=== PATIENT | female | born 1990 | race Two or more races ===

== ENCOUNTER 2018-03-17 04:41 | Emergency (ER) | payer SELFPAY ==
[2018-03-17] MEDS ORDERED: OXYCODONE-ACETAMINOPHEN 5-325 MG TABLET PO ONE (05:08)
[2018-03-17] MEDS ORDERED: ONDANSETRON 4 MG TAB.RAPDIS PO ONE (05:08)
--- NOTE | 2018-03-17 05:10 | ER Document Report ---
ED Medical Screen (RME) - General Chief Complaint: Back Pain Stated Complaint: BACK PAIN Time Seen by Provider: 03/17/18 05:03 Notes: 27-year-old female with chief complaint of sharp pain in the left pelvic area that radiates around to her left lower back. Symptoms started tonight. Denies vomiting, fever, vaginal bleeding, vaginal discharge, dysuria. TRAVEL OUTSIDE OF THE [place] IN LAST 30 DAYS: No - Related Data Allergies/Adverse Reactions: No Known Allergies Allergy (Verified 03/17/18 05:01) Physical Exam - Vital signs Vitals: Temp Pulse Resp BP Pulse Ox 98.3 F 93 17 101/74 93 03/17/18 04:47 03/17/18 04:47 03/17/18 04:47 03/17/18 04:47 03/17/18 04:47 - Abdominal Tenderness: Tender - Tender in the left lower quadrant/left pelvic area, remainder of abdomen is completely unremarkable Course - Re-evaluation Re-evalutation: Patient somewhat hirsute, has symptoms and physical examination suggestive of pain from ovarian cyst. Workup pending. I have greeted and performed a rapid initial assessment of this patient. A comprehensive ED assessment and evaluation of the patient, analysis of test results and completion of the medical decision making process will be conducted by additional ED providers. - Vital Signs Vital signs: Temp Pulse Resp BP Pulse Ox 98.3 F 93 17 101/74 93 03/17/18 04:47 03/17/18 04:47 03/17/18 04:47 03/17/18 04:47 03/17/18 04:47 Doctor's Discharge - Discharge Referrals: ARLINE ISLAS MD [Primary Care Provider] - Follow up as needed
[2018-03-17 05:29] LABS: ABSOLUTE BASOPHILS # (AUTO) 0.1 10^3/uL (0.0-0.2); ABSOLUTE EOSINOPHILS # (AUTO) 0.2 10^3/uL (0.0-0.6); ABSOLUTE LYMPHOCYTES (AUTO) 1.9 10^3/uL (0.5-4.7); ABSOLUTE MONOCYTES (AUTO) 0.5 10^3/uL (0.1-1.4); ABSOLUTE NEUT (AUTO) 5.4 10^3/uL (1.7-8.2); BASOPHILS % (AUTO) 0.8 % (0-2); EOSINOPHILS % (AUTO) 2.9 % (0-6); HEMATOCRIT 37.5 % (36.0-47.0); HEMOGLOBIN 12.5 g/dL (12.0-15.5); MEAN CORPUSCULAR HEMOGLOBIN 26.3 pg (27.0-33.4); MEAN CORPUSCULAR HGB CONC 33.4 g/dL (32.0-36.0); MEAN CORPUSCULAR VOLUME 79 fl (80-97); MONOCYTES % (AUTO) 6.4 % (3-13); PLATELET COUNT 367 10^3/uL (150-450); RED BLOOD COUNT 4.76 10^6/uL (3.72-5.28); RED CELL DISTRIBUTION WIDTH 14.3 % (11.5-14.0); SEGMENTED NEUTROPHILS % (AUTO) 66.9 % (42-78); TOTAL CELLS COUNTED % (AUTO) 100 %; WHITE BLOOD COUNT 8.1 10^3/uL (4.0-10.5)
[2018-03-17 05:45] LABS: APPEARANCE,URINE SLIGHTLY-CLOUDY; BILIRUBIN,URINE NEGATIVE (NEGATIVE); COLOR,URINE YELLOW; GLUCOSE, URINE NEGATIVE (NEGATIVE); KETONES,URINE NEGATIVE (NEGATIVE); LEUKOCYTE ESTERASE,URINE NEGATIVE (NEGATIVE); NITRITE,URINE NEGATIVE (NEGATIVE); PROTEIN,URINE NEGATIVE (NEGATIVE); URINE SPECIFIC GRAVITY 1.019; UROBILINOGEN,URINE NEGATIVE mg/dL (<2.0)
[2018-03-17 05:48] LABS: ANION GAP 9 (5-19); BLOOD UREA NITROGEN 11 mg/dL (7-20); CALCIUM 9.1 mg/dL (8.4-10.2); CARBON DIOXIDE 25 mmol/L (22-30); CHLORIDE 107 mmol/L (98-107); GLUCOSE 107 mg/dL (75-110); POTASSIUM 4.3 mmol/L (3.6-5.0); SODIUM 140.5 mmol/L (137-145)
--- NOTE | 2018-03-17 07:05 | RADIOLOGY REPORT (SQ) ---
CLINICAL DATA: 27-year-old female with sharp left pelvic pain. The patient's LMP was 02/24/2018. TECHNICAL DATA: Transabdominal and transvaginal imaging of the pelvis was performed on 03/17/2018 at 5:49 AM. FINDINGS: There are no comparisons. The uterus is normal in size, shape and echogenicity and measures 7.4 x 5.1 x 3.7 cm. The endometrial complex measures 1.0 cm in thickness. There is no endometrial fluid. The cervix measures 2.2 cm in length. The right ovary measures 3.2 x 2.4 x 2.3 cm. The right ovary demonstrates normal follicular changes. Doppler imaging demonstrates normal pulsed and color Doppler flow. The left ovary measures 2.8 x 1.9 x 2.7 cm. The left ovary demonstrates normal follicular changes. There is a dominant follicle arising from the left ovary with a maximum dimension of 1.7 cm. No follow-up imaging recommended. Doppler imaging demonstrates normal pulsed and color Doppler flow. There is a small amount of free fluid in the pelvis adjacent to the left ovary. IMPRESSION: 1. Small amount of free fluid in the left adnexal region adjacent to the left ovary. 2. Otherwise, unremarkable pelvic ultrasound.
--- NOTE | 2018-03-17 07:18 | ER Document Report ---
ED General - General Chief Complaint: Back Pain Stated Complaint: BACK PAIN Time Seen by Provider: 03/17/18 05:03 TRAVEL OUTSIDE OF THE [place] IN LAST 30 DAYS: No - HPI Patient complains to provider of: Back pain abdominal pain Notes: Patient coming in for evaluation of back pain and abdominal pain. Patient was seen by triage provider's notes provided below 27-year-old female with chief complaint of sharp pain in the left pelvic area that radiates around to her left lower back. Symptoms started tonight. Denies vomiting, fever, vaginal bleeding, vaginal discharge, dysuria. Patient agrees with the above statement. Patient has history of kidney stones denies any dysuria denies any fevers chills nausea vomiting diarrhea patient denies any trauma denies any recent antibiotics. Patient otherwise is resting comfortably upon my evaluation. Patient states the pain is now free is that she received a Percocet prior to my arrival. A brief review of the patient's past medical records available in [facility] was performed - Related Data Allergies/Adverse Reactions: No Known Allergies Allergy (Verified 03/17/18 05:01) Past Medical History - Social History Smoking Status: Never Smoker Chew tobacco use (# tins/day): No Frequency of alcohol use: None Drug Abuse: None Family History: Reviewed & Not Pertinent Patient has suicidal ideation: No Patient has homicidal ideation: No Renal/ Medical History: Denies: Hx Peritoneal Dialysis Review of Systems - Review of Systems Constitutional: No symptoms reported EENT: No symptoms reported Cardiovascular: No symptoms reported Respiratory: No symptoms reported Gastrointestinal: Abdominal pain - Back pain radiating to the abdomen Genitourinary: No symptoms reported Female Genitourinary: No symptoms reported Musculoskeletal: No symptoms reported Skin: No symptoms reported Hematologic/Lymphatic: No symptoms reported Neurological/Psychological: No symptoms reported -: Yes All other systems reviewed and negative Physical Exam - Vital signs Vitals: Temp Pulse Resp BP Pulse Ox 98.3 F 93 17 101/74 93 03/17/18 04:47 03/17/18 04:47 03/17/18 04:47 03/17/18 04:47 03/17/18 04:47 Interpretation: Normal - General General appearance: Appears well, Alert - HEENT Head: Normocephalic, Atraumatic Eyes: Normal Pupils: PERRL - Respiratory Respiratory status: No respiratory distress Chest status: Nontender Breath sounds: Normal Chest palpation: Normal - Cardiovascular Rhythm: Regular Heart sounds: Normal auscultation Murmur: No - Abdominal Inspection: Normal Distension: No distension Bowel sounds: Normal Tenderness: Nontender Organomegaly: No organomegaly - Back Back: Normal, Nontender - Extremities General upper extremity: Normal inspection, Nontender, Normal color, Normal ROM, Normal temperature General lower extremity: Normal inspection, Nontender, Normal color, Normal ROM, Normal temperature, Normal weight bearing. No: Joni's sign - Neurological Neuro grossly intact: Yes Cognition: Normal Orientation: AAOx4 Vu Coma Scale Eye Opening: Spontaneous [place] Coma Scale Verbal: Oriented [place] Coma Scale Motor: Obeys Commands Vu Coma Scale Total: 15 Speech: Normal Motor strength normal: LUE, RUE, LLE, RLE Sensory: Normal - Psychological Associated symptoms: Normal affect, Normal mood - Skin Skin Temperature: Warm Skin Moisture: Dry Skin Color: Normal Course - Re-evaluation Re-evalutation: 03/17/18 08:01 The patient presents with abdominal pain without signs of peritonitis or other life-threatening or serious etiology. The patient appears stable for discharge and has been instructed to return immediately if the symptoms worsen in any way, or in 8-12hr if not improved for re-evaluation. The patient has been instructed to return if the symptoms worsen or change in any way. Left ovary does have some free fluid around it which may be consistent with a ruptured cyst. She otherwise remained pain-free during her stay here patient was recommended to continue with Tylenol Motrin for pain control prescription for Ultram was given to the patient for the next 72 hours. Patient states understanding of the use of this medication was discharged home. - Vital Signs Vital signs: Temp Pulse Resp BP Pulse Ox 98.2 F 72 16 115/63 98 03/17/18 07:23 03/17/18 07:23 03/17/18 07:23 03/17/18 07:23 03/17/18 07:23 - Laboratory Result Diagrams: 03/17/18 05:18 03/17/18 05:18 Laboratory results interpreted by me: 03/17/18 03/17/18 05:18 05:18 MCV 79 L MCH 26.3 L RDW 14.3 H Urine Blood LARGE H Discharge - Discharge Clinical Impression: left lower abdominal pain Condition: Good Instructions: Ice Packs ([facility]), Low Back Pain ([facility]), Oral Narcotic Medication ([facility]), Ovarian Cyst ([facility]), Warm Packs ([facility]) Additional Instructions: Your evaluation today is consistent with a ruptured ovarian cyst. I would highly recommend she follow-up with your primary care physician take Tylenol and Motrin as prescribed for your pain take the Ultram as prescribed for severe pain Prescriptions: Ibuprofen [Motrin 600 mg Tablet] 600 mg PO Q8HP PRN #21 tablet PRN Reason: Tramadol HCl [Ultram 50 mg Tablet] 50 mg PO ASDIR PRN #11 tablet PRN Reason: Forms: Return to Work Referrals: ARLINE ISLAS MD [ACTIVE STAFF] - Follow up as needed
[2018-03-17 07:29] VITALS: BP 115/63
== END 2018-03-17 07:24 | disposition home or self-care (01) ==
LOC: ER 04:41
DX: R10.2 Pelvic and perineal pain (principal); R18.8 Other ascites; M54.5 Low back pain; Z87.442 Personal history of urinary calculi
CPT/HCPCS: 99284; 36415; 85025; 81025; 80048; 81001; 76830; 93976; S0119

== ENCOUNTER 2018-05-26 08:36 | Emergency (ER) | payer SELFPAY ==
[2018-05-26 10:24] LABS: ABSOLUTE EOSINOPHILS # (AUTO) 0.1 10^3/uL (0.0-0.6); ABSOLUTE LYMPHOCYTES (AUTO) 1.8 10^3/uL (0.5-4.7); ABSOLUTE MONOCYTES (AUTO) 0.6 10^3/uL (0.1-1.4); ABSOLUTE NEUT (AUTO) 9.3 10^3/uL (1.7-8.2); BASOPHILS % (AUTO) 0.4 % (0-2); EOSINOPHILS % (AUTO) 0.8 % (0-6); HEMATOCRIT 36.2 % (36.0-47.0); HEMOGLOBIN 12.3 g/dL (12.0-15.5); LYMPHOCYTES % (AUTO) 15.3 % (13-45); MEAN CORPUSCULAR HEMOGLOBIN 26.6 pg (27.0-33.4); MEAN CORPUSCULAR VOLUME 78 fl (80-97); MONOCYTES % (AUTO) 4.8 % (3-13); PLATELET COUNT 355 10^3/uL (150-450); RED BLOOD COUNT 4.62 10^6/uL (3.72-5.28); RED CELL DISTRIBUTION WIDTH 14.6 % (11.5-14.0); SEGMENTED NEUTROPHILS % (AUTO) 78.7 % (42-78); TOTAL CELLS COUNTED % (AUTO) 100 %; WHITE BLOOD COUNT 11.8 10^3/uL (4.0-10.5)
[2018-05-26] MEDS ORDERED: ACETAMINOPHEN 325 MG TABLET PO ONE (10:30)
--- NOTE | 2018-05-26 10:32 | ER Document Report ---
ED General - General Chief Complaint: Lower Abdominal Pain Stated Complaint: ABDOMINAL PAIN Time Seen by Provider: 05/26/18 10:24 Primary Care Provider: [facility] [Provider Group] - Follow up in 3-5 days TRAVEL OUTSIDE OF THE [place] IN LAST 30 DAYS: No - HPI Notes: Patient is a 27-year-old female that presents to the emergency department for chief complaint of left adnexal pain. She states the pain is sharp and constant since 7 AM this morning with intermittent radiation into her back. She denies aggravating or relieving factors. Patient is at about 8 weeks gestation with an estimated due date of January 04 based on dates. She has had confirmed at the health department but has not had an ultrasound yet. She denies any vaginal bleeding or discharge. She denies any associated urinary complaints. The only medication she is currently taking is vitamins Past Medical History: Ovarian cysts Past Surgical History: Negative Social History: Denies drugs alcohol and tobacco Family History: Reviewed and noncontributory for presenting illness Allergies: Reviewed, see documented allergy list. REVIEW OF SYSTEMS: CONSTITUTIONAL : No fever No chills No diaphoresis No recent illness EENT: No vision changes No congestion No sore throat CARDIOVASCULAR: No chest pain No palpitations RESPIRATORY: No shortness of breath No cough No difficulty breathing GASTROINTESTINAL: abdominal pain No nausea No vomiting No diarrhea GENITOURINARY: No dysuria No hematuria No difficulty urinating MUSCULOSKELETAL: No back pain No leg pain No arm pain SKIN: No rashes No lesions LYMPHATIC: No swollen, enlarged glands. NEUROLOGICAL: No lightheadedness No headache No weakness No paresthesias PSYCHIATRIC: No anxiety No depression PHYSICAL EXAMINATION: Vital signs reviewed, nursing noted reviewed. GENERAL: Well-appearing, well-nourished and in no acute distress. HEAD: Atraumatic, normocephalic. EYES: Eyes appear normal, extraocular movements intact, sclera anicteric, conjunctiva are normal. ENT: nares patent, oropharynx clear without exudates. Moist mucous membranes. NECK: Normal range of motion, supple without lymphadenopathy LUNGS: Breath sounds clear to auscultation bilaterally and equal. No wheezes rales or rhonchi. HEART: Regular rate and rhythm without murmurs ABDOMEN: Soft, mild left lower quadrant tenderness, normoactive bowel sounds. No rebound, guarding, or rigidity. No masses appreciated. EXTREMITIES: Nontender, good range of motion, no pitting or edema. NEUROLOGICAL: No focal neurological deficits. Moves all extremities spontaneously Motor and sensory grossly intact on exam. PSYCH: Normal mood, normal affect. SKIN: Warm, Dry, normal turgor, no rashes or lesions noted on exposed skin - Related Data Allergies/Adverse Reactions: No Known Allergies Allergy (Verified 05/26/18 08:37) Past Medical History - Social History Smoking Status: Unknown if Ever Smoked Family History: Reviewed & Not Pertinent Patient has suicidal ideation: No Patient has homicidal ideation: No Renal/ Medical History: Denies: Hx Peritoneal Dialysis Physical Exam - Vital signs Vitals: Temp Pulse Resp BP Pulse Ox 98.1 F 82 16 142/80 H 99 05/26/18 08:40 05/26/18 08:40 05/26/18 08:40 05/26/18 08:40 05/26/18 08:40 Course - Re-evaluation Re-evalutation: 05/26/18 12:40 Vitals reviewed. Nursing notes reviewed. Patient given Tylenol for pain. Ultrasound shows single live intrauterine gestation with no ectopic . Her lab work is unremarkable. Her pain was improved with medication. She has remained hemodynamically stable. Patient's presenting blood pressure was elevated however repeat is normal. I suspect this was falsely elevated, I did counselor camp her on close blood pressure recheck at [facility]. She was referred to OB for further management. She was counseled on return precautions and verbalized understanding. Patient's UTI treated with Macrobid. Laboratory 05/26/18 05/26/18 05/26/18 10:04 10:04 10:04 WBC 11.8 H RBC 4.62 Hgb 12.3 Hct 36.2 MCV 78 L MCH 26.6 L MCHC 34.0 RDW 14.6 H Plt Count 355 Seg Neutrophils % 78.7 H Lymphocytes % 15.3 Monocytes % 4.8 Eosinophils % 0.8 Basophils % 0.4 Absolute Neutrophils 9.3 H Absolute Lymphocytes 1.8 Absolute Monocytes 0.6 Absolute Eosinophils 0.1 Absolute Basophils 0.0 Sodium 136.3 L Potassium 4.2 Chloride 106 Carbon Dioxide 20 L Anion Gap 10 BUN 10 Creatinine 0.66 Est GFR ( Amer) > 60 Est GFR (Non-Af Amer) > 60 Glucose 94 Calcium 9.7 Total Bilirubin 0.4 Direct Bilirubin 0.3 Neonat Total Bilirubin Not Reportable Neonat Direct Bilirubin Not Reportable Neonat Indirect Bili Not Reportable AST 19 ALT 18 Alkaline Phosphatase 78 Total Protein 7.4 Albumin 3.9 Lipase 69.3 Beta HCG, Quant Total Beta HCG Urine Color YELLOW Urine Appearance CLEAR Urine pH 7.0 Ur Specific Rosine 1.014 Urine Protein NEGATIVE Urine Glucose (UA) NEGATIVE Urine Ketones NEGATIVE Urine Blood NEGATIVE Urine Nitrite NEGATIVE Urine Bilirubin NEGATIVE Urine Urobilinogen NEGATIVE Ur Leukocyte Esterase MODERATE H Urine WBC (Auto) 13 Urine RBC (Auto) 1 Squamous Epi Cells Auto 3 Urine Mucus (Auto) RARE Urine Ascorbic Acid NEGATIVE Urine HCG, Qual POSITIVE H Blood Type Rhogam Indicated 05/26/18 05/26/18 10:04 10:47 WBC RBC Hgb Hct MCV MCH MCHC RDW Plt Count Seg Neutrophils % Lymphocytes % Monocytes % Eosinophils % Basophils % Absolute Neutrophils Absolute Lymphocytes Absolute Monocytes Absolute Eosinophils Absolute Basophils Sodium Potassium Chloride Carbon Dioxide Anion Gap BUN Creatinine Est GFR ( Amer) Est GFR (Non-Af Amer) Glucose Calcium Total Bilirubin Direct Bilirubin Neonat Total Bilirubin Neonat Direct Bilirubin Neonat Indirect Bili AST ALT Alkaline Phosphatase Total Protein Albumin Lipase Beta HCG, Quant 21521.00 H Total Beta HCG POSITIVE Urine Color Urine Appearance Urine pH Ur Specific Rosine Urine Protein Urine Glucose (UA) Urine Ketones Urine Blood Urine Nitrite Urine Bilirubin Urine Urobilinogen Ur Leukocyte Esterase Urine WBC (Auto) Urine RBC (Auto) Squamous Epi Cells Auto Urine Mucus (Auto) Urine Ascorbic Acid Urine HCG, Qual Blood Type O POSITIVE Rhogam Indicated RHOGAM NOT INDICATED Obstetrics Ultrasound 05/26/18 10:24 IMPRESSION: LIVING INTRAUTERINE . EGA 6 weeks 6 days. Trimester of : First - 0 to 13 weeks. 05/26/18 12:54 - Vital Signs Vital signs: Temp Pulse Resp BP Pulse Ox 98.2 F 66 16 110/59 L 100 05/26/18 12:51 05/26/18 12:51 05/26/18 12:51 05/26/18 12:51 05/26/18 12:51 - Laboratory Result Diagrams: 05/26/18 10:04 05/26/18 10:04 Laboratory results interpreted by me: 05/26/18 05/26/18 05/26/18 10:04 10:04 10:04 WBC 11.8 H MCV 78 L MCH 26.6 L RDW 14.6 H Seg Neutrophils % 78.7 H Absolute Neutrophils 9.3 H Sodium 136.3 L Carbon Dioxide 20 L Beta HCG, Quant Ur Leukocyte Esterase MODERATE H Urine HCG, Qual POSITIVE H 05/26/18 10:04 WBC MCV MCH RDW Seg Neutrophils % Absolute Neutrophils Sodium Carbon Dioxide Beta HCG, Quant 92976.00 H Ur Leukocyte Esterase Urine HCG, Qual Discharge - Discharge Clinical Impression: Acute UTI, Abdominal pain affecting Condition: Stable Disposition: HOME, SELF-CARE Instructions: Nitrofurantoin ([facility]), Pelvic Pain in ([facility]), Urinary Tract Infection ([facility]) Additional Instructions: Please return to the emergency department if you have any worsening, or concern of your symptoms. Please return to the emergency department if you develop chest pain, difficulty breathing, severe abdominal pain, or ongoing vomiting. Please follow-up with your primary care physician in 2-3 days and any other recommended physicians. If prescribed, take all medications as directed. If you have any questions or concerns do not hesitate to return the emergency department for evaluation. [] Prescriptions: Nitrofurantoin Macrocrystal [Macrodantin] 100 mg PO Q6 5 Days capsule Referrals: [facility] [Provider Group] - Follow up in 3-5 days
[2018-05-26 10:40] LABS: APPEARANCE,URINE CLEAR; BILIRUBIN,URINE NEGATIVE (NEGATIVE); COLOR,URINE YELLOW; GLUCOSE, URINE NEGATIVE (NEGATIVE); KETONES,URINE NEGATIVE (NEGATIVE); LEUKOCYTE ESTERASE,URINE MODERATE (NEGATIVE); NITRITE,URINE NEGATIVE (NEGATIVE); PROTEIN,URINE NEGATIVE (NEGATIVE); URINE SPECIFIC GRAVITY 1.014; UROBILINOGEN,URINE NEGATIVE mg/dL (<2.0)
[2018-05-26 10:49] LABS: ALANINE AMINOTRANSFERASE 18 U/L (9-52); ALBUMIN 3.9 g/dL (3.5-5.0); ALKALINE PHOSPHATASE 78 U/L (38-126); ANION GAP 10 (5-19); ASPARTATE AMINO TRANSFERASE 19 U/L (14-36); BILIRUBIN,DIRECT 0.3 mg/dL (0.0-0.4); BILIRUBIN,TOTAL 0.4 mg/dL (0.2-1.3); BLOOD UREA NITROGEN 10 mg/dL (7-20); CALCIUM 9.7 mg/dL (8.4-10.2); CARBON DIOXIDE 20 mmol/L (22-30); CHLORIDE 106 mmol/L (98-107); GLUCOSE 94 mg/dL (75-110); LIPASE 69.3 U/L (23-300); POTASSIUM 4.2 mmol/L (3.6-5.0); SODIUM 136.3 mmol/L (137-145); TOTAL PROTEIN 7.4 g/dL (6.3-8.2)
[2018-05-26] MEDS ORDERED: NORMAL SALINE 1000 ML 1,000 ML IV ONE (12:20)
--- NOTE | 2018-05-26 12:39 | RADIOLOGY REPORT (SQ) ---
EXAM DESCRIPTION: U/S OB TRANSVAGINAL W/O DOP COMPLETED DATE/TIME: 05/26/2018 12:32 pm REASON FOR STUDY: left adnexal pain COMPARISON: None. TECHNIQUE: Transvaginal static and realtime grayscale images acquired of the pelvis. Additional kusum cted spectral and color Doppler images recorded. All images stored on PACs. [id number] CLINICAL DATES: 8 weeks 1 day LIMITATIONS: None. FINDINGS: FETUS: Single Living intrauterine . ULTRASOUND EGA: 6 weeks 6 days ULTRASOUND MARLO: 01/13/2019 EFW: Not applicable less than 20 weeks. CRL: 9 mm FHR: 131 beats per minute. SURVEY: No visualized anomalies. AMNIOTIC FLUID: Adequate amount. PLACENTA: Not yet developed due to early gestation. SUBCHORIONIC BLEED: No. SIZE OF BLEED: Not applicable. UTERUS: No masses. No anomalies. CERVICAL LENGTH: 2.2 cm. Closed. RIGHT ADNEXA: Normal ovary with normal vascular flow. No adnexal free fluid. Simple cyst(s) measuring 3.3 cm. LEFT ADNEXA: Normal ovary with normal vascular flow. No adnexal free fluid. No adnexal masses. FREE FLUID: None. OTHER: No other significant finding. IMPRESSION: LIVING INTRAUTERINE . EGA 6 weeks 6 days. Trimester of : First - 0 to 13 weeks. TECHNICAL DOCUMENTATION: JOB ID: [id number] [employer]- All Rights Reserved Reading location - IP/workstation name: [email or web address]
[2018-05-26 12:52] VITALS: BP 110/59
== END 2018-05-26 13:06 | disposition home or self-care (01) ==
LOC: ER 08:36
DX: O23.40 Unspecified infection of urinary tract in pregnancy, unspecified trimester (principal); O26.899 Other specified pregnancy related conditions, unspecified trimester; R10.2 Pelvic and perineal pain; R10.814 Left lower quadrant abdominal tenderness; Z3A.00 Weeks of gestation of pregnancy not specified; Z87.42 Personal history of other diseases of the female genital tract; Z79.899 Other long term (current) drug therapy
CPT/HCPCS: 36415; 76817; 80053; 81001; 81025; 83690; 84702; 85025; 86900; 86901; 99284

== ENCOUNTER 2018-07-15 22:25 | Emergency (ER) | payer MEDICAID ==
[2018-07-15] MEDS ORDERED: ACETAMINOPHEN 325 MG TABLET PO ONE (22:42)
[2018-07-16 00:16] LABS: APPEARANCE,URINE TURBID; BILIRUBIN,URINE NEGATIVE (NEGATIVE); CALCIUM OXALATE CRYSTALS,URINE MANY /HPF; COLOR,URINE YELLOW; GLUCOSE, URINE NEGATIVE (NEGATIVE); KETONES,URINE TRACE mg/dL (NEGATIVE); LEUKOCYTE ESTERASE,URINE SMALL (NEGATIVE); NITRITE,URINE NEGATIVE (NEGATIVE); PROTEIN,URINE NEGATIVE (NEGATIVE); URINE SPECIFIC GRAVITY 1.021; UROBILINOGEN,URINE NEGATIVE mg/dL (<2.0)
[2018-07-16] MEDS ORDERED: OXYCODONE-ACETAMINOPHEN 5-325 MG TABLET PO ONE (00:21)
[2018-07-16] MEDS ORDERED: ONDANSETRON 4 MG TAB.RAPDIS PO ONE (00:21)
--- NOTE | 2018-07-16 00:22 | ER Document Report ---
ED General - General Chief Complaint: OB Problem (<20wks) Stated Complaint: ABDOMINAL PAIN Time Seen by Provider: 07/15/18 23:42 Primary Care Provider: RASHMI NIX MD [Primary Care Provider] - Follow up as needed Mode of Arrival: Ambulatory Information source: Patient, [facility] Records Notes: 27-year-old female G1, P0 at 14 weeks gestation presents with complaint of left lower quadrant abdominal pain that started 1 day prior to arrival. Patient describes the pain as aching, stabbing and associated with nausea, vomiting and chills. Patient denies any vaginal bleeding. She has been following with OB and has had a prior ultrasound which showed an IUP. Patient also reports frequent urinary tract infections with her last infection 1 week ago which was treated with Macrobid. Patient has had a total of 3 urinary tract infection since this . TRAVEL OUTSIDE OF THE [place] IN LAST 30 DAYS: No - HPI Onset: Yesterday Onset/Duration: Gradual, Persistent Quality of pain: Achy, Throbbing Severity: Moderate Pain Level: 2 Associated symptoms: Nausea, Vomiting Exacerbated by: Denies Relieved by: Denies Similar symptoms previously: Yes Recently seen / treated by doctor: Yes - Related Data Allergies/Adverse Reactions: No Known Allergies Allergy (Verified 05/26/18 08:37) Past Medical History - General Information source: Patient - Social History Smoking Status: Never Smoker Chew tobacco use (# tins/day): No Frequency of alcohol use: None Drug Abuse: None Lives with: Family Family History: Reviewed & Not Pertinent Patient has suicidal ideation: No Patient has homicidal ideation: No - Medical History Medical History: Negative Renal/ Medical History: Denies: Hx Peritoneal Dialysis Review of Systems - Review of Systems Notes: REVIEW OF SYSTEMS: CONSTITUTIONAL : Denies fever, or sweats. Denies recent illness. Denies weight loss, recent hospitalizations. EENT: Denies visual changes, eye pain. Denies sore throat, oral lesions, difficulty swallowing. CARDIOVASCULAR: Denies chest pain. Denies palpitations. Denies lower extremity edema. RESPIRATORY: Denies cough. Denies shortness of breath, wheezing. GASTROINTESTINAL: Denies abdominal pain or distention. Denies diarrhea. Denies blood in vomitus, stools, or per rectum. Denies black, tarry stools. Denies constipation. GENITOURINARY: Denies difficulty urinating, painful urination, blood in urine, or vaginal discharge. MUSCULOSKELETAL: Denies back or neck pain or stiffness. Denies joint pain or swelling. SKIN: Denies rash, lesions or sores. HEMATOLOGIC : Denies easy bruising or bleeding. LYMPHATIC: Denies swollen glands. NEUROLOGICAL: Denies confusion or altered mental status. Denies loss of consciousness. Denies dizziness or lightheadedness. Denies headache. Denies weakness or paralysis. Denies problems difficulty with ambulation, slurred speech. Denies sensory loss, numbness, or tingling. Denies seizures. PSYCHIATRIC: Denies anxiety or stress. Denies depression, suicidal ideation, or homicidal ideation. Denies visual or auditory hallucinations. Physical Exam - Vital signs Vitals: Temp Pulse Resp BP Pulse Ox 98.1 F 85 20 110/86 H 98 07/15/18 22:32 07/15/18 22:32 07/15/18 22:32 07/15/18 22:32 07/15/18 22:32 - Notes Notes: PHYSICAL EXAMINATION: GENERAL: Well-appearing, well-nourished and in no acute distress. HEAD: Atraumatic, normocephalic. EYES: Pupils equal round and reactive to light, extraocular movements intact, conjunctiva are normal. ENT: Nares patent, oropharynx clear without exudates. Moist mucous membranes. NECK: Normal range of motion, supple without lymphadenopathy LUNGS: Breath sounds clear to auscultation bilaterally and equal. No wheezes rales or rhonchi. HEART: Regular rate and rhythm without murmurs ABDOMEN: Soft, suprapubic abdominal tenderness, nondistended abdomen. No guarding, no rebound. No masses appreciated. Female : deferred Musculoskeletal: Normal range of motion, no pitting or edema. No cyanosis. NEUROLOGICAL: Cranial nerves grossly intact. Normal speech, normal gait. Normal sensory, motor exams PSYCH: Normal mood, normal affect. SKIN: Warm, Dry, normal turgor, no rashes or lesions noted. Course - Re-evaluation Re-evalutation: 07/16/18 00:22 Bedside ultrasound was performed and shows an IUP with a heart rate of 158. 07/16/18 02:26 Laboratory 07/15/18 22:48 Urine Color YELLOW Urine Appearance TURBID Urine pH 7.0 Ur Specific [place] 1.021 Urine Protein NEGATIVE Urine Glucose (UA) NEGATIVE Urine Ketones TRACE H Urine Blood NEGATIVE Urine Nitrite NEGATIVE Urine Bilirubin NEGATIVE Urine Urobilinogen NEGATIVE Ur Leukocyte Esterase SMALL H Urine WBC (Auto) 11 Urine RBC (Auto) 3 Urine Bacteria (Auto) TRACE Squamous Epi Cells Auto 13 Calcium Oxalate Cr Auto MANY Urine Mucus (Auto) OCC Urine Ascorbic Acid NEGATIVE Temp Pulse Resp BP Pulse Ox 98.5 F 86 18 132/65 H 100 07/16/18 00:54 07/16/18 00:54 07/16/18 00:54 07/16/18 00:54 07/16/18 00:54 27-year-old female G1, P0 at 14 weeks gestation presents with left lower quadrant abdominal pain. Patient does have a history of recurrent urinary tract infection. Denies any vaginal bleeding. Reports recent discontinuation of an antibiotic. Previous medical records and nursing notes reviewed. Bedside ultrasound was performed and did show an IUP with a heart rate of 158. Urine culture pending. Patient was provided Tylenol for pain and advised to take Tylenol every 4 hours as needed. Patient was evaluated and treated as appropriate for the patient's presenting symptoms and complaint, with consideration of any critical or life threatening conditions that may be associated with their obtained history and exam as noted above. All results were discussed with patient and family members are at the bedside. patient provided the opportunity to ask questions, and express concerns. Patient was educated on treatments based on their presumed diagnosis as noted above. At this time we will discharge the patient with return precautions and follow-up recommendations. Verbal discharge instructions given a the bedside. Medication warnings reviewed. Patient is in agreement with this plan and has verbalized understanding of return precautions. After careful consideration I feel that that patient can be safely discharged from the emergency department, they were advised to followup with a primary care physician in 2-3 days. Dictation on this chart was performed using voice recognition software and may result in unintended grammatical, spelling, syntax or errors. - Vital Signs Vital signs: Temp Pulse Resp BP Pulse Ox 98.5 F 86 18 132/65 H 100 07/16/18 00:54 07/16/18 00:54 07/16/18 00:54 07/16/18 00:54 07/16/18 00:54 - Laboratory Laboratory results interpreted by me: 07/15/18 22:48 Urine Ketones TRACE H Ur Leukocyte Esterase SMALL H Discharge - Discharge Clinical Impression: Abdominal pain during in second trimester Condition: Good Disposition: HOME, SELF-CARE Instructions: Abdominal Pain ([facility]), Pelvic Pain in ([facility]), Pelvic Pain in and Round Ligament Pain ([facility]) Referrals: RASHMI NIX MD [Primary Care Provider] - Follow up as needed
[2018-07-16 00:54] VITALS: BP 132/65
== END 2018-07-16 00:55 | disposition home or self-care (01) ==
LOC: ER 22:25
DX: O26.92 Pregnancy related conditions, unspecified, second trimester (principal); R10.32 Left lower quadrant pain; Z3A.14 14 weeks gestation of pregnancy
CPT/HCPCS: 99284; 87086; 87088; 81001; 87186; J3490; S0119

== ENCOUNTER 2018-08-25 17:32 | Emergency (ER) | payer MEDICAID ==
--- NOTE | 2018-08-25 18:56 | ER Document Report ---
ED Medical Screen (RME) - General Chief Complaint: Vaginal Bleeding Stated Complaint: URINARY SYMPTOMS Time Seen by Provider: 08/25/18 18:52 Primary Care Provider: RASHMI NIX MD [Primary Care Provider] - Follow up as needed TRAVEL OUTSIDE OF THE [place] IN LAST 30 DAYS: No - HPI Notes: 08/25/18 18:55 Patient is a 28-year-old female G1, P0 at 19 weeks 6 days who presents complaining of having 2 episodes of spotting today with some burning with urination and pressure in that area. Patient states that she does have a yellow/cloudy vaginal discharge. She is having normal bowel movements. Denies drug allergies. No other concerns or complaints. Denies ESTEVEZ, fever, neck pain, URI, CP, SOB, back pain, or rash. I have treated and performed a rapid initial assessment of this patient. A comprehensive ED assessment and evaluation of the patient, analysis of test results and completion of medical decision making process will be conducted by additional ED providers. PHYSICAL EXAMINATION: GENERAL: Well-appearing, well-nourished and in no acute distress. A&Ox4. Answers questions appropriately. LUNGS: Breath sounds clear to auscultation bilaterally and equal. No wheezes rales or rhonchi. HEART: Regular rate and rhythm without murmurs, rubs, gallops. - Related Data Allergies/Adverse Reactions: No Known Allergies Allergy (Verified 07/17/18 09:09) Past Medical History Renal/ Medical History: Denies: Hx Peritoneal Dialysis Physical Exam - Vital signs Vitals: Temp Pulse Resp BP Pulse Ox 97.4 F 88 16 127/69 H 99 08/25/18 17:47 08/25/18 17:47 08/25/18 17:47 08/25/18 17:47 08/25/18 17:47 Course - Vital Signs Vital signs: Temp Pulse Resp BP Pulse Ox 97.4 F 88 16 127/69 H 99 08/25/18 17:47 08/25/18 17:47 08/25/18 17:47 08/25/18 17:47 08/25/18 17:47 Doctor's Discharge - Discharge Referrals: RASHMI NIX MD [Primary Care Provider] - Follow up as needed
[2018-08-25 19:48] LABS: APPEARANCE,URINE CLOUDY; BILIRUBIN,URINE NEGATIVE (NEGATIVE); COLOR,URINE YELLOW; GLUCOSE, URINE NEGATIVE (NEGATIVE); KETONES,URINE NEGATIVE (NEGATIVE); LEUKOCYTE ESTERASE,URINE SMALL (NEGATIVE); NITRITE,URINE NEGATIVE (NEGATIVE); PROTEIN,URINE 30 mg/dL (NEGATIVE); URINE SPECIFIC GRAVITY 1.016; UROBILINOGEN,URINE NEGATIVE mg/dL (<2.0)
--- NOTE | 2018-08-25 20:28 | RADIOLOGY REPORT (SQ) ---
EXAM DESCRIPTION: CLINICAL HISTORY: 28 years Female 19wks 6 days, spotting twice today COMPARISON: None. TECHNIQUE: Transabdominal duplex imaging performed to evaluate the pelvis. FINDINGS: Anterior placenta without abruption or previa. Cord insertion spine and stomach are noted. Normal ITZ. Cervix appears closed and measures 3.9 cm. Maternal ovaries are unremarkable with normal blood flow. Breech presentation. Estimated weight 424 g. Estimated age 21 weeks two days. Heart rate 127 bpm. IMPRESSION: Living IUP corresponding to 21 weeks two days
--- NOTE | 2018-08-25 20:33 | ER Document Report ---
ED GI/ - General Chief Complaint: Vaginal Bleeding Stated Complaint: URINARY SYMPTOMS Time Seen by Provider: 08/25/18 18:52 Primary Care Provider: RASHMI NIX MD [ACTIVE STAFF] - Follow up as needed Notes: Patient is a 28-year-old female, G1, P0 at reportedly 19 weeks 6 days by first trimester ultrasound, that comes to the emergency department for chief complaint of 2 episodes of very light vaginal spotting that she noticed with wiping, she is also had some dysuria, a small amount of vaginal discharge, and occasional cramps in the lower abdomen. She denies current pain. She denies fever/chills, injury, nausea/vomiting. She states she feels "flutters" that she thinks it was baby moving but she is not certain. TRAVEL OUTSIDE OF THE [place] IN LAST 30 DAYS: No - Related Data Allergies/Adverse Reactions: No Known Allergies Allergy (Verified 08/25/18 22:03) Past Medical History - General Last Menstrual Period: 03/30/18 - Social History Smoking Status: Never Smoker Frequency of alcohol use: None Drug Abuse: None Family History: Reviewed & Not Pertinent Patient has suicidal ideation: No Patient has homicidal ideation: No Renal/ Medical History: Denies: Hx Peritoneal Dialysis Review of Systems - Review of Systems Constitutional: No symptoms reported EENT: No symptoms reported Cardiovascular: No symptoms reported Respiratory: No symptoms reported Gastrointestinal: See HPI Genitourinary: See HPI Female Genitourinary: See HPI Musculoskeletal: No symptoms reported Skin: No symptoms reported Hematologic/Lymphatic: No symptoms reported Neurological/Psychological: No symptoms reported Physical Exam - Vital signs Vitals: Temp Pulse Resp BP Pulse Ox 97.4 F 88 16 127/69 H 99 08/25/18 17:47 08/25/18 17:47 08/25/18 17:47 08/25/18 17:47 08/25/18 17:47 - Notes Notes: GENERAL: Alert, interacts well. No acute distress. HEAD: Normocephalic, atraumatic. EYES: Pupils equal, round, and reactive to light. Extraocular movements intact. ENT: Oral mucosa moist, tongue midline. Oropharynx unremarkable. Airway patent. NECK: Full range of motion. Supple. Trachea midline. LUNGS: Clear to auscultation bilaterally, no wheezes, rales, or rhonchi. No respiratory distress. HEART: Regular rate and rhythm. No murmur ABDOMEN: Soft, non-tender. Bowel sounds present in all 4 quadrants. GENITOURINARY: Small amount of discharge noted, external exam unremarkable, no cervical motion tenderness, no bleeding, no concerning findings otherwise. Exam performed with Tatyana GONZALEZ at bedside. EXTREMITIES: Moves all 4 extremities spontaneously. No edema, normal radial and dorsalis pedis pulses bilaterally. No cyanosis. BACK: no cervical, thoracic, lumbar midline tenderness. No saddle anesthesia, normal distal neurovascular exam. Moves all extremities in full range of motion. NEUROLOGICAL: Alert and oriented x3. Normal speech. Cranial nerves II through XII grossly intact. PSYCH: Normal affect, normal mood. SKIN: Warm, dry, normal turgor. No rashes or lesions noted. Course - Re-evaluation Re-evalutation: Patient is well-appearing. Her abdomen is soft and benign. No concerning abnormality or cervical motion tenderness on pelvic exam. CBC shows mild leukocytosis. Urinalysis appears infected. There does not appear to be any vaginal bleeding going on my exam. Pelvic results nonspecific. Ultrasound showing live intrauterine at 21 weeks. No acute findings otherwise. RhoGam is not indicated. I discussed with patient. I discussed with Dr. De La O, [facility] SCIENTIST on-call. She does not recommend patient be checked in the labor and delivery because her work-up is completed at this time and she is currently asymptomatic. Recommendation is for patient to be treated for urinary tract infection, she is to follow-up with primary care/[facility] SCIENTIST and return if she worsens, return precautions were discussed in detail. Patient states satisfaction agreement. - Vital Signs Vital signs: Temp Pulse Resp BP Pulse Ox 98.0 F 83 18 130/67 H 99 08/25/18 21:54 08/25/18 21:54 08/25/18 21:54 08/25/18 21:54 08/25/18 21:54 - Laboratory Result Diagrams: 08/25/18 20:35 Laboratory results interpreted by me: 08/25/18 08/25/18 18:50 20:35 WBC 13.3 H Hgb 11.1 L Hct 33.6 L MCV 78 L MCH 25.7 L RDW 14.2 H Seg Neutrophils % 79.6 H Absolute Neutrophils 10.6 H Urine Protein 30 H Urine Blood LARGE H Ur Leukocyte Esterase SMALL H Discharge - Discharge Clinical Impression: Abdominal cramping affecting Condition: Stable Disposition: HOME, SELF-CARE Additional Instructions: There appears to be blood in the urine but no current vaginal bleeding is noted. The ultrasound shows a at 21 weeks without any noted concerning findings. We are treating for what is suspected to be a bladder infection, take Keflex antibiotics as prescribed. I spoke with Dr. Jairon walters. Follow-up with primary care. Return if you worsen including fever, vomiting, severe abdominal pain, vaginal bleeding, or any other concerning or worsening symptoms. Prescriptions: Cephalexin Monohydrate [Keflex 500 mg Capsule] 500 mg PO BID 7 Days #14 capsule Referrals: RASHMI NIX MD [ACTIVE STAFF] - Follow up as needed
[2018-08-25 20:51] LABS: ABSOLUTE BASOPHILS # (AUTO) 0.1 10^3/uL (0.0-0.2); ABSOLUTE EOSINOPHILS # (AUTO) 0.1 10^3/uL (0.0-0.6); ABSOLUTE LYMPHOCYTES (AUTO) 2.1 10^3/uL (0.5-4.7); ABSOLUTE MONOCYTES (AUTO) 0.4 10^3/uL (0.1-1.4); ABSOLUTE NEUT (AUTO) 10.6 10^3/uL (1.7-8.2); BASOPHILS % (AUTO) 0.7 % (0-2); EOSINOPHILS % (AUTO) 0.8 % (0-6); HEMATOCRIT 33.6 % (36.0-47.0); HEMOGLOBIN 11.1 g/dL (12.0-15.5); LYMPHOCYTES % (AUTO) 15.8 % (13-45); MEAN CORPUSCULAR HEMOGLOBIN 25.7 pg (27.0-33.4); MEAN CORPUSCULAR HGB CONC 33.1 g/dL (32.0-36.0); MEAN CORPUSCULAR VOLUME 78 fl (80-97); MONOCYTES % (AUTO) 3.1 % (3-13); PLATELET COUNT 349 10^3/uL (150-450); RED BLOOD COUNT 4.33 10^6/uL (3.72-5.28); RED CELL DISTRIBUTION WIDTH 14.2 % (11.5-14.0); SEGMENTED NEUTROPHILS % (AUTO) 79.6 % (42-78); TOTAL CELLS COUNTED % (AUTO) 100 %; WHITE BLOOD COUNT 13.3 10^3/uL (4.0-10.5)
[2018-08-25 21:25] LABS: RBCS (WET MOUNT) NO RBCS SEEN; T.VAGINALIS (WET MOUNT) NO TRICHOMONAS SEEN; WBCS (WET MOUNT) 2+ WBCS SEEN; YEAST (WET MOUNT) NO YEAST SEEN
[2018-08-25] MEDS ORDERED: CEPHALEXIN 500 MG CAPSULE PO ONE (21:44)
[2018-08-25 21:55] VITALS: BP 130/67
[2018-08-25 22:53] LABS: CHLAM PCR NOT DETECTED (NOT DETECT)
== END 2018-08-25 22:03 | disposition home or self-care (01) ==
LOC: ER 17:32
DX: O46.92 Antepartum hemorrhage, unspecified, second trimester (principal); O26.892 Other specified pregnancy related conditions, second trimester; R10.9 Unspecified abdominal pain; R30.0 Dysuria; Z3A.19 19 weeks gestation of pregnancy
CPT/HCPCS: 36415; 76805; 81001; 85025; 86900; 86901; 87086; 87210; 87491; 87591; 99284

== ENCOUNTER 2018-10-21 19:39 | Emergency (ER) | payer MEDICAID ==
--- NOTE | 2018-10-21 20:23 | ER Document Report ---
ED Medical Screen (RME) - General Chief Complaint: Flank Pain Stated Complaint: RIGHT SIDE PAIN Time Seen by Provider: 10/21/18 20:17 Primary Care Provider: CRISTAL BRAGA MD [Primary Care Provider] - Follow up as needed Notes: Patient is a 28-year-old female who presents to the emergency department today with a chief complaint of right lower back pain. Patient states that started this morning and is constant. Patient states this feels like a pressure. Patient states she just finished Macrobid last a week for a UTI. She states she was on this for 10 days. Patient reports increased urinary frequency, cloudy urine and discoloration. Patient reports vaginal pressure. Patient reports she is 28 weeks , denies contractions or vaginal bleeding. Patient reports she has felt the baby move. Patient denies flank pain. Patient denies fever. Patient states she was having sexual intercourse a few days ago and had burning at that time to the vagina. Patient reports vaginal discharge that is thick and white and itching. TRAVEL OUTSIDE OF THE [place] IN LAST 30 DAYS: No - Related Data Allergies/Adverse Reactions: No Known Allergies Allergy (Verified 08/25/18 22:03) Past Medical History Renal/ Medical History: Denies: Hx Peritoneal Dialysis Physical Exam - Vital signs Vitals: Temp Pulse Resp BP Pulse Ox 98.1 F 87 18 120/70 99 10/21/18 19:53 10/21/18 19:53 10/21/18 19:53 10/21/18 19:53 10/21/18 19:53 - Back Notes: No CVA tenderness Course - Re-evaluation Re-evalutation: 10/21/18 20:23 I have greeted and performed a rapid initial assessment of this patient. A comprehensive ED assessment and evaluation of the patient, analysis of test results and completion of the medical decision making process will be conducted by additional ED providers. - Vital Signs Vital signs: Temp Pulse Resp BP Pulse Ox 98.1 F 87 18 120/70 99 10/21/18 19:53 10/21/18 19:53 10/21/18 19:53 10/21/18 19:53 10/21/18 19:53 Doctor's Discharge - Discharge Referrals: CRISTAL BRAGA MD [Primary Care Provider] - Follow up as needed
[2018-10-21 20:46] LABS: AMORPHOUS SEDIMENT,URINE TRACE /HPF; APPEARANCE,URINE SLIGHTLY-CLOUDY; BILIRUBIN,URINE NEGATIVE (NEGATIVE); COLOR,URINE YELLOW; GLUCOSE, URINE NEGATIVE (NEGATIVE); KETONES,URINE NEGATIVE (NEGATIVE); LEUKOCYTE ESTERASE,URINE LARGE (NEGATIVE); NITRITE,URINE NEGATIVE (NEGATIVE); PROTEIN,URINE 30 mg/dL (NEGATIVE); URINE SPECIFIC GRAVITY 1.018; UROBILINOGEN,URINE NEGATIVE mg/dL (<2.0)
--- NOTE | 2018-10-21 20:58 | ER Document Report ---
ED General - General Chief Complaint: Flank Pain Stated Complaint: RIGHT SIDE PAIN Time Seen by Provider: 10/21/18 20:17 Primary Care Provider: CRISTAL BRAGA MD [Primary Care Provider] - Follow up as needed Information source: Patient TRAVEL OUTSIDE OF THE [place] IN LAST 30 DAYS: No - HPI Notes: Patient presents with right flank pain. Started this morning. She states she has had multiple urinary tract infections with this . She states this feels similar. She states is been eating normally. No nausea or vomiting. No trouble with stool. She does not have burning or stinging with urination. She states she has had no vaginal leakage or bleeding. She states she is 28 weeks and has had no problems with this other than the chronic UTIs. She states she still feeling the baby move. The pain in her back is been moderate and constant. Nothing makes better or worse. It is an aching sensation. - Related Data Allergies/Adverse Reactions: No Known Allergies Allergy (Verified 08/25/18 22:03) Past Medical History - General Information source: Patient - Social History Smoking Status: Never Smoker Frequency of alcohol use: None Drug Abuse: None Family History: Reviewed & Not Pertinent Patient has suicidal ideation: No Patient has homicidal ideation: No Renal/ Medical History: Denies: Hx Peritoneal Dialysis Review of Systems - Review of Systems Constitutional: denies: Chills, Fever Cardiovascular: denies: Chest pain, Syncope Respiratory: denies: Cough, Short of breath -: Yes All other systems reviewed and negative Physical Exam - Vital signs Vitals: Temp Pulse Resp BP Pulse Ox 98.1 F 87 18 120/70 99 10/21/18 19:53 10/21/18 19:53 10/21/18 19:53 10/21/18 19:53 10/21/18 19:53 Interpretation: Normal - General General appearance: Appears well, Alert - HEENT Head: Normocephalic, Atraumatic Eyes: Normal Pupils: PERRL - Respiratory Respiratory status: No respiratory distress Chest status: Nontender Breath sounds: Normal Chest palpation: Normal - Cardiovascular Rhythm: Regular Heart sounds: Normal auscultation Murmur: No - Abdominal Inspection: Gravid female Distension: No distension Bowel sounds: Normal Tenderness: Tender - Patient has some minimal right lower quadrant tenderness to palpation. Organomegaly: No organomegaly - Back Back: Normal, Tender, CVA tenderness - Right CVA tenderness to percussion - Extremities General upper extremity: Normal inspection, Nontender, Normal color, Normal ROM, Normal temperature General lower extremity: Normal inspection, Nontender, Normal color, Normal ROM, Normal temperature, Normal weight bearing. No: Joni's sign - Neurological Neuro grossly intact: Yes Cognition: Normal Orientation: AAOx4 [place] Coma Scale Eye Opening: Spontaneous Vu Coma Scale Verbal: Oriented [place] Coma Scale Motor: Obeys Commands [place] Coma Scale Total: 15 Speech: Normal Motor strength normal: LUE, RUE, LLE, RLE Sensory: Normal - Psychological Associated symptoms: Normal affect, Normal mood - Skin Skin Temperature: Warm Skin Moisture: Dry Skin Color: Normal Course - Re-evaluation Re-evalutation: 10/21/18 21:27 Patient reassessed at this time. Patient has ambulated to the bathroom without assistance. Her vitals are normal. She still has some mild right-sided abdo carol ann and flank pain. She has a mild increase of her white blood cell count. However she has no fever and does not appear toxic. Dr. Potter asked me to have the patient follow-up in the office in the morning. I believe this is reasonable. Patient is in agreement. 10/21/18 21:29 heart tones were 140 - Vital Signs Vital signs: Temp Pulse Resp BP Pulse Ox 98.1 F 87 18 120/70 99 10/21/18 19:53 10/21/18 19:53 10/21/18 19:53 10/21/18 19:53 10/21/18 19:53 - Laboratory Result Diagrams: 10/21/18 20:53 10/21/18 20:53 Laboratory results interpreted by me: 10/21/18 10/21/18 10/21/18 19:50 20:53 20:53 WBC 14.8 H Hgb 11.0 L Hct 33.2 L MCV 76 L MCH 25.0 L RDW 15.1 H Seg Neutrophils % 79.8 H Absolute Neutrophils 11.8 H Sodium 136.0 L Carbon Dioxide 19 L Urine Protein 30 H Ur Leukocyte Esterase LARGE H 10/21/18 21:29 Laboratory 10/21/18 10/21/18 10/21/18 19:50 20:53 20:53 WBC 14.8 H RBC 4.39 Hgb 11.0 L Hct 33.2 L MCV 76 L MCH 25.0 L MCHC 33.0 RDW 15.1 H Plt Count 334 Seg Neutrophils % 79.8 H Lymphocytes % 14.7 Monocytes % 4.0 Eosinophils % 0.7 Basophils % 0.8 Absolute Neutrophils 11.8 H Absolute Lymphocytes 2.2 Absolute Monocytes 0.6 Absolute Eosinophils 0.1 Absolute Basophils 0.1 Sodium 136.0 L Potassium 3.8 Chloride 105 Carbon Dioxide 19 L Anion Gap 12 BUN 9 Creatinine 0.84 Est GFR ( Amer) > 60 Est GFR (Non-Af Amer) > 60 Glucose 81 Calcium 9.1 Urine Color YELLOW Urine Appearance SLIGHTLY-CLOUDY Urine pH 6.0 Ur Specific [place] 1.018 Urine Protein 30 H Urine Glucose (UA) NEGATIVE Urine Ketones NEGATIVE Urine Blood NEGATIVE Urine Nitrite NEGATIVE Urine Bilirubin NEGATIVE Urine Urobilinogen NEGATIVE Ur Leukocyte Esterase LARGE H Urine WBC (Auto) 63 Urine RBC (Auto) 7 Urine Bacteria (Auto) TRACE Squamous Epi Cells Auto 6 U Non-Squamous Epis Auto 1 Amorphous Sediment Auto TRACE Urine Mucus (Auto) RARE Urine Ascorbic Acid NEGATIVE Discharge - Discharge Clinical Impression: Pyelonephritis affecting Qualifiers: Trimester: third trimester Qualified Code(s): O23.03 - Infections of kidney in , third trimester Condition: Stable Disposition: HOME, SELF-CARE Instructions: Pyelonephritis ([facility]) Prescriptions: Cefdinir 300 mg PO BID 7 Days #14 capsule Referrals: TREY POTTER MD [ACTIVE STAFF] - Follow up tomorrow
[2018-10-21] MEDS ORDERED: CEFTRIAXONE 1 GM/D5W RTU 1 GM/50 ML RTUPB IV ONE (21:01)
[2018-10-21 21:02] LABS: ABSOLUTE BASOPHILS # (AUTO) 0.1 10^3/uL (0.0-0.2); ABSOLUTE EOSINOPHILS # (AUTO) 0.1 10^3/uL (0.0-0.6); ABSOLUTE LYMPHOCYTES (AUTO) 2.2 10^3/uL (0.5-4.7); ABSOLUTE MONOCYTES (AUTO) 0.6 10^3/uL (0.1-1.4); ABSOLUTE NEUT (AUTO) 11.8 10^3/uL (1.7-8.2); BASOPHILS % (AUTO) 0.8 % (0-2); EOSINOPHILS % (AUTO) 0.7 % (0-6); HEMATOCRIT 33.2 % (36.0-47.0); LYMPHOCYTES % (AUTO) 14.7 % (13-45); MEAN CORPUSCULAR VOLUME 76 fl (80-97); PLATELET COUNT 334 10^3/uL (150-450); RED BLOOD COUNT 4.39 10^6/uL (3.72-5.28); RED CELL DISTRIBUTION WIDTH 15.1 % (11.5-14.0); SEGMENTED NEUTROPHILS % (AUTO) 79.8 % (42-78); TOTAL CELLS COUNTED % (AUTO) 100 %; WHITE BLOOD COUNT 14.8 10^3/uL (4.0-10.5)
[2018-10-21 21:18] LABS: ANION GAP 12 (5-19); BLOOD UREA NITROGEN 9 mg/dL (7-20); CALCIUM 9.1 mg/dL (8.4-10.2); CARBON DIOXIDE 19 mmol/L (22-30); CHLORIDE 105 mmol/L (98-107); GLUCOSE 81 mg/dL (75-110); POTASSIUM 3.8 mmol/L (3.6-5.0)
[2018-10-21] MEDS ORDERED: CEFTRIAXONE INJ 1000 MG VIAL ONE (21:18)
[2018-10-21 21:58] VITALS: BP 123/60
== END 2018-10-21 21:57 | disposition home or self-care (01) ==
LOC: ER 19:39
DX: O23.03 Infections of kidney in pregnancy, third trimester (principal); R10.9 Unspecified abdominal pain; Z3A.28 28 weeks gestation of pregnancy
CPT/HCPCS: 36415; 80048; 81001; 85025; 87086; 87088; J0696

== ENCOUNTER 2018-11-29 12:21 | Outpatient (CLI) | payer MEDICAID ==
[2018-11-29 13:20] LABS: APPEARANCE,URINE CLOUDY; BILIRUBIN,URINE NEGATIVE (NEGATIVE); COLOR,URINE YELLOW; GLUCOSE, URINE NEGATIVE (NEGATIVE); KETONES,URINE NEGATIVE (NEGATIVE); LEUKOCYTE ESTERASE,URINE LARGE (NEGATIVE); NITRITE,URINE NEGATIVE (NEGATIVE); PROTEIN,URINE 30 mg/dL (NEGATIVE); URINE AMPHETAMINES SCREEN NEGATIVE; URINE BARBITURATES SCREEN NEGATIVE; URINE BENZODIAZEPINES SCREEN NEGATIVE; URINE COCAINE SCREEN NEGATIVE; URINE MARIJUANA (THC) SCREEN NEGATIVE; URINE METHADONE SCREEN NEGATIVE; URINE PHENCYCLIDINE SCREEN NEGATIVE; URINE SPECIFIC GRAVITY 1.013; UROBILINOGEN,URINE NEGATIVE mg/dL (<2.0)
[2018-11-29] MEDS ORDERED: ACETAMINOPHEN 325 MG TABLET PO ONE (13:30)
[2018-11-29] MEDS ORDERED: PROMETHAZINE HCL INJ 25 MG/1 ML VIAL IV ONE (13:30)
[2018-11-29] MEDS ORDERED: ACETAMINOPHEN 325 MG TABLET ONE (13:51)
[2018-11-29] MEDS ORDERED: PROMETHAZINE HCL INJ 25 MG/1 ML VIAL ONE (13:51)
[2018-11-29] MEDS: RINGERS SOLUTION,LACTATED 1,000 ML IV PRN ×2 (14:01→14:41)
[2018-11-29 14:41] LABS: ALBUMIN 3.1 g/dL (3.5-5.0); ALKALINE PHOSPHATASE 165 U/L (38-126); ANION GAP 11 (5-19); ASPARTATE AMINO TRANSFERASE 17 U/L (14-36); BILIRUBIN,DIRECT 0.2 mg/dL (0.0-0.4); BILIRUBIN,TOTAL 0.4 mg/dL (0.2-1.3); BLOOD UREA NITROGEN 5 mg/dL (7-20); CALCIUM 9.2 mg/dL (8.4-10.2); CARBON DIOXIDE 17 mmol/L (22-30); CHLORIDE 107 mmol/L (98-107); GLUCOSE 78 mg/dL (75-110); TOTAL PROTEIN 6.4 g/dL (6.3-8.2)
[2018-11-29 14:48] LABS: HEMATOCRIT 33.1 % (36.0-47.0); HEMOGLOBIN 10.8 g/dL (12.0-15.5); MEAN CORPUSCULAR HEMOGLOBIN 23.8 pg (27.0-33.4); MEAN CORPUSCULAR HGB CONC 32.8 g/dL (32.0-36.0); MEAN CORPUSCULAR VOLUME 73 fl (80-97); PLATELET COUNT 244 10^3/uL (150-450); RED BLOOD COUNT 4.56 10^6/uL (3.72-5.28); RED CELL DISTRIBUTION WIDTH 15.6 % (11.5-14.0); WHITE BLOOD COUNT 11.6 10^3/uL (4.0-10.5)
[2018-11-29 14:57] LABS: ABSOLUTE LYMPHOCYTES# (MANUAL) 0.9 10^3/uL (0.5-4.7); ANISOCYTOSIS SLIGHT; BASOPHILS % (MANUAL) 0 % (0-2); EOSINOPHILS % (MANUAL) 0 % (0-6); HYPOCHROMASIA 1+; LYMPHOCYTES % (MANUAL) 8 % (13-45); METAMYELOCYTES % (MANUAL) 1 % (0); MONOCYTES % (MANUAL) 0 % (3-13); PLATELET COMMENT ADEQUATE; PLATELET GIANT PRESENT; PLATELET LARGE PRESENT; POLYCHROMASIA SLIGHT; SEGMENTED NEUTROPHILS % (MAN) 91 % (42-78); TOTAL CELLS COUNTED 100
[2018-11-29] MEDS ORDERED: CEFTRIAXONE INJ 1000 MG VIAL IV ONE (15:49)
[2018-11-29] MEDS ORDERED: CEFTRIAXONE 1 GM/D5W RTU 1 GM/50 ML RTUPB IV ONE (16:00)
[2018-11-29] MEDS ORDERED: CEFTRIAXONE INJ 1000 MG VIAL ONE (16:01)
== END 2018-11-29 17:00 | disposition home or self-care (01) ==
LOC: LC 12:21
PROVIDERS: ATTEND Obstetrics & Gynecology
PROC: 4A1HXCZ Monitoring of Products of Conception, Cardiac Rate, External Approach (ICD-10-PCS; principal; 2018-11-29)
DX: Z34.93 Encounter for supervision of normal pregnancy, unspecified, third trimester (principal)
CPT/HCPCS: 59025; 36415; 87086; 85025; 87088; 80053; 81001; 87186; 80307; J3490; J2550; J0696

== ENCOUNTER 2018-12-18 20:22 | Emergency (ER) | payer MEDICAID ==
--- NOTE | 2018-12-18 21:40 | ER Document Report ---
ED Medical Screen (RME) - General Chief Complaint: Low Back Pain Stated Complaint: BACK PAIN,LOWER ABDOMINAL PAIN,NAUSEA,CHILLS Time Seen by Provider: 12/18/18 21:32 Primary Care Provider: RASHMI NIX MD [ACTIVE STAFF] - Follow up as needed Mode of Arrival: Wheelchair Information source: Patient Notes: 38-year-old female presents to ED for abdominal cramping back pain and stomach tightening up. She states the pains are about every 10 to 15 minutes apart. She was seen at the main desk and the patient access called up to labor and delivery they told her she needed to come to the emergency room. I am just seeing her now. I have called labor and delivery and I will send her straight up to labor and delivery at this time. TRAVEL OUTSIDE OF THE [place] IN LAST 30 DAYS: No - HPI Onset: This afternoon Onset/Duration: Gradual, Intermittent Quality of pain: Cramping, Sharp Severity: Moderate Pain Level: 2 Associated Symptoms: Abdominal pain - Intermittent cramps about 10 to 15 minutes apart now Exacerbated by: Movement Relieved by: Denies Similar symptoms previously: No Recently seen / treated by doctor: No - Related Data Smoking: Non-smoker Frequency of alcohol use: None Drug Abuse: None Allergies/Adverse Reactions: No Known Allergies Allergy (Verified 11/29/18 14:37) Home Medications: none Past Medical History - General Information source: Patient - Social History Chew tobacco use (# tins/day): No Frequency of alcohol use: None Drug Abuse: None Lives with: Family Family history: Reviewed & Not Pertinent - Past Medical History Cardiac Medical History: Reports: None Pulmonary Medical History: Reports: None EENT Medical History: Reports: None Neurological Medical History: Reports: None Endocrine Medical History: Reports: None Renal/ Medical History: Reports: Hx Ovarian Cysts Malignancy Medical History: Reports: None GI Medical History: Reports: None Musculoskeltal Medical History: Reports None Psychiatric Medical History: Reports: None Traumatic Medical History: Reports: None Infectious Medical History: Reports: None Past Surgical History: Reports: Other - Cyst on buttocks - Immunizations Immunizations up to date: Yes Hx Diphtheria, Pertussis, Tetanus Vaccination: Yes Physical Exam - Vital signs Vitals: Temp Pulse Resp BP Pulse Ox 98.3 F 84 20 126/90 H 100 12/18/18 20:33 12/18/18 20:33 12/18/18 20:33 12/18/18 20:33 12/18/18 20:33 Course - Re-evaluation Re-evalutation: 12/18/18 21:45 The vital signs that were put in earlier are not to this patient. We are putting the vital signs and right now. Her pulse is 122 her blood pressure is 123/77 her O2 sat is 98% her temperature is 99.1 and respirations are 18. She states she weighed 255 pounds yesterday at the [employer] [facility] [employer] and she is 5 foot 7. - Vital Signs Vital signs: Temp Pulse Resp BP Pulse Ox 99.1 F 122 H 18 123/77 98 12/18/18 21:45 12/18/18 21:45 12/18/18 21:45 12/18/18 21:45 12/18/18 21:45 Doctor's Discharge - Discharge Clinical Impression: Back pain affecting in third trimester, abdominal cramping 3rd trimester Disposition: LABOR CHECK Additional Instructions: 38-year-old female presents to ED for abdominal cramping back pain and stomach tightening up. She states the pains are about every 10 to 15 minutes apart. She was seen at the main desk and the patient access called up to labor and delivery they told her she needed to come to the emergency room. I am just seeing her now. I have called labor and delivery and I will send her straight up to labor and delivery at this time. Please go straight to labor and delivery at this time. Referrals: RASHMI NIX MD [ACTIVE STAFF] - Follow up as needed
[2018-12-18 21:46] VITALS: BP 123/77
== END 2018-12-18 21:46 | disposition admitted as inpatient to this hospital (09) ==
LOC: ER 20:22
DX: O26.893 Other specified pregnancy related conditions, third trimester (principal); M54.5 Low back pain; R10.30 Lower abdominal pain, unspecified; R11.0 Nausea; Z3A.00 Weeks of gestation of pregnancy not specified

== ENCOUNTER 2018-12-18 21:48 | Inpatient (IN) | payer MEDICAID ==
[2018-12-18 22:20] LABS: APPEARANCE,URINE SLIGHTLY-CLOUDY; BILIRUBIN,URINE NEGATIVE (NEGATIVE); COLOR,URINE YELLOW; GLUCOSE, URINE NEGATIVE (NEGATIVE); KETONES,URINE NEGATIVE (NEGATIVE); LEUKOCYTE ESTERASE,URINE MODERATE (NEGATIVE); NITRITE,URINE NEGATIVE (NEGATIVE); PROTEIN,URINE NEGATIVE (NEGATIVE); UROBILINOGEN,URINE NEGATIVE mg/dL (<2.0)
[2018-12-18] MEDS ORDERED: RINGERS SOLUTION,LACTATED 1,000 ML IV ONE (22:24)
[2018-12-18 22:40] LABS: URINE AMPHETAMINES SCREEN NEGATIVE; URINE BARBITURATES SCREEN NEGATIVE; URINE BENZODIAZEPINES SCREEN NEGATIVE; URINE COCAINE SCREEN NEGATIVE; URINE MARIJUANA (THC) SCREEN NEGATIVE; URINE METHADONE SCREEN NEGATIVE; URINE PHENCYCLIDINE SCREEN NEGATIVE
[2018-12-19] MEDS ORDERED: HYDROXYZINE PAMOATE 50 MG CAPSULE ONE (00:11)
[2018-12-19] MEDS ORDERED: HYDROXYZINE PAMOATE 50 MG CAPSULE PO ONE (00:55)
[2018-12-19] MEDS ORDERED: ACETAMINOPHEN 325 MG TABLET ONE ×3 (01:21→14:06)
[2018-12-19] MEDS ORDERED: CLINDAMYCIN 900 MG/D5W RTU 900 MG/50 ML RTUPB IV ONE (01:21)
[2018-12-19] MEDS ORDERED: ONDANSETRON HCL INJ/PF 4 MG/2 ML SDV ONE (01:47)
--- NOTE | 2018-12-19 01:49 | Admission Physical ---
Datetime Report Generated by CPN: 12/19/2018 01:48 CURRENT ADMISSION Chief Complaint: Other Chief Complaint Other: back pain Indication for Induction: Not Applicable Admit Impression : , Intrauterine Admit Plan: Admit to Unit ALLERGIES Medication Allergies: No Known Allergies (11/29/2018) OBSTETRICAL HISTORY EDC: 01/13/2019 00:00 : 1 Para: 0 Term: 0 : 0 SAB: 0 IAB: 0 Ectopic: 0 Livin Cesareans: 0 VBACs: 0 Multiple Births: 0 PHYSICAL EXAM General: Normal HEENT: Normal Neurologic: Normal Thyroid: Normal Heart: Normal Lungs: Normal Breast: Deferred Back: Normal Abdomen: Normal Genitourinary Exam: Normal Extremities: Normal DTRs: Normal Pelvic Type: Adequate FETUS A EGA: 36.3 Admit Comment: admit for IV antibiotics, hydration, and observation INFORMED CONSENT Signature: with User ID: [email or web address]
[2018-12-19] MEDS: CLINDAMYCIN 900 MG/D5W RTU 900 MG/50 ML RTUPB IV SCH ×3 (01:57→14:43)
[2018-12-19] MEDS ORDERED: ACETAMINOPHEN 325 MG TABLET PO ONE (02:00)
[2018-12-19] MEDS ORDERED: ONDANSETRON HCL INJ/PF 4 MG/2 ML SDV IV ONE (02:10)
[2018-12-19 02:57] LABS: ABSOLUTE LYMPHOCYTES (AUTO) 0.6 10^3/uL (0.5-4.7); ABSOLUTE MONOCYTES (AUTO) 0.5 10^3/uL (0.1-1.4); ABSOLUTE NEUT (AUTO) 9.4 10^3/uL (1.7-8.2); BASOPHILS % (AUTO) 0.4 % (0-2); EOSINOPHILS % (AUTO) 0.1 % (0-6); HEMATOCRIT 32.3 % (36.0-47.0); HEMOGLOBIN 10.5 g/dL (12.0-15.5); LYMPHOCYTES % (AUTO) 5.7 % (13-45); MEAN CORPUSCULAR HEMOGLOBIN 23.3 pg (27.0-33.4); MEAN CORPUSCULAR HGB CONC 32.6 g/dL (32.0-36.0); MEAN CORPUSCULAR VOLUME 72 fl (80-97); MONOCYTES % (AUTO) 4.9 % (3-13); PLATELET COUNT 291 10^3/uL (150-450); RED BLOOD COUNT 4.52 10^6/uL (3.72-5.28); RED CELL DISTRIBUTION WIDTH 16.5 % (11.5-14.0); SEGMENTED NEUTROPHILS % (AUTO) 88.9 % (42-78); TOTAL CELLS COUNTED % (AUTO) 100 %; WHITE BLOOD COUNT 10.6 10^3/uL (4.0-10.5)
--- NOTE | 2018-12-19 05:07 | RADIOLOGY REPORT (SQ) ---
EXAM DESCRIPTION: US BIOPHYSICAL PROFILE WITHOUT NON STRESS TEST COMPLETED DATE/TME: 12/19/2018 00:00 CLINICAL HISTORY: 28 years, Female, well being COMPARISON: None. TECHNIQUE: Emergent biophysical profile LIMITATIONS: None. FINDINGS: breathing, tone, movement, amniotic fluid volume by all score 2 of 2. Single, live intrauterine gestation in cephalic presentation. IMPRESSION: Total biophysical profile score 8 of 8 copyright 2010 [facility] [employer]- All Rights Reserved
--- NOTE | 2018-12-19 07:11 | Non Stress Test Report ---
Non Stress Test Datetime Report Generated by CPN: 12/19/2018 07:11 DEMOGRAPHIC EGA NST: 36.2 INDICATION Indication for Study: Ordered by Provider MONITORING Monitor Explained: Monitor Explained; Test Explained; Patient Verbalized Understanding Time on Monitor: 12/18/2018 22:08 Time off Monitor: 12/19/2018 04:22 NST Duration: 374 NST INTERVENTIONS NST Interventions: PO Hydration; Reposition Patient Physician Notified NST: Dr. Stacy BABY A Movement : Present FHR Baseline : 170 Accelerations : 10X10 Decelerations : None Variability : Moderate 6-25bpm NST Review: Does Not Meet Criteria for Reactive NST NST Review and Verified By : June Lynch RN NST Results: Non-Reactive NST REPORT Report Trigger: Send Report
[2018-12-19] MEDS ORDERED: PROMETHAZINE HCL INJ 25 MG/1 ML VIAL IV PRN (14:00)
[2018-12-19] MEDS: CEFTRIAXONE 1 GM/D5W RTU 1 GM/50 ML RTUPB IV SCH (15:04)
[2018-12-19] MEDS: ACETAMINOPHEN 325 MG TABLET PO PRN ×2 (15:05→20:17)
[2018-12-19] MEDS ORDERED: INFLUENZA QUAD (6MOS+) 2019-20 VAC 0.5 ML SYR IM ONE (19:00)
[2018-12-19] MEDS: RINGERS SOLUTION,LACTATED 1,000 ML IV PRN (20:18)
[2018-12-20] MEDS: ACETAMINOPHEN 325 MG TABLET PO PRN ×4 (00:04→20:13)
[2018-12-20] MEDS ORDERED: ACETAMINOPHEN 325 MG TABLET PO ONE (00:15)
[2018-12-20] MEDS: RINGERS SOLUTION,LACTATED 1,000 ML IV PRN ×3 (00:28→09:48)
[2018-12-20] MEDS: ONDANSETRON HCL INJ/PF 4 MG/2 ML SDV IV PRN (05:20)
[2018-12-20 07:57] LABS: ABSOLUTE LYMPHOCYTES (AUTO) 1.5 10^3/uL (0.5-4.7); ABSOLUTE MONOCYTES (AUTO) 1.1 10^3/uL (0.1-1.4); ABSOLUTE NEUT (AUTO) 11.9 10^3/uL (1.7-8.2); BASOPHILS % (AUTO) 0.2 % (0-2); HEMATOCRIT 30.6 % (36.0-47.0); HEMOGLOBIN 9.8 g/dL (12.0-15.5); LYMPHOCYTES % (AUTO) 10.1 % (13-45); MEAN CORPUSCULAR HEMOGLOBIN 23.1 pg (27.0-33.4); MEAN CORPUSCULAR HGB CONC 31.9 g/dL (32.0-36.0); MEAN CORPUSCULAR VOLUME 72 fl (80-97); MONOCYTES % (AUTO) 7.7 % (3-13); PLATELET COUNT 223 10^3/uL (150-450); RED BLOOD COUNT 4.23 10^6/uL (3.72-5.28); RED CELL DISTRIBUTION WIDTH 16.7 % (11.5-14.0); TOTAL CELLS COUNTED % (AUTO) 100 %; WHITE BLOOD COUNT 14.6 10^3/uL (4.0-10.5)
--- NOTE | 2018-12-20 08:56 | RADIOLOGY REPORT (SQ) ---
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 TECHNIQUE: Dynamic and static grayscale images acquired of the kidneys and bladder and recorded on P ACS. Additional selected color Doppler and spectral images recorded. LIMITATIONS: None. FINDINGS: RIGHT KIDNEY: Normal size, 13.6 cm in length. Normal echogenicity. No solid or suspic ious masses. There is very mild dilatation of the right renal pelvis, AP diameter 9 mm which is wit hin normal limits given the patient's estimated gestational age of 36 weeks. No calcifications. LEFT KIDNEY: Normal size, 12.1 cm in length. Normal echogenicity. No solid or suspicious masses. No hydronephrosis. No calcifications. BLADDER: No masses. OTHER FINDINGS: No other significant finding. IMPRESSION: Very mild dilatation of the right renal pelvis, within normal limits given the patient's gestational status of 36 weeks. No left-sided collecting system dilatation No ultrasound evidence of intrarenal kidney stones TECHNICAL DOCUMENTATION: JOB ID: [id number] [employer]- All Rights Reserved Reading location - IP/workstation name: [email or web address]
[2018-12-20] MEDS: CEFTRIAXONE 1 GM/D5W RTU 1 GM/50 ML RTUPB IV SCH (09:49)
[2018-12-20] MEDS: PRENATAL VITAMIN W DHA CAPSULE PO SCH (09:50)
--- NOTE | 2018-12-20 09:57 | PDOC PROGRESS REPORT ---
Subjective Progress Note for:: 12/20/18 Subjective:: Doing well this AM. No n/v, SOB. Did have a fever yesterday but reports it broke overnight. Denies pain. GOod FM Reason For Visit: LABOR CHECK/CHILLS NAUSEA,BACK PAIN Physical Exam - Physical Exam Vital Signs: Temp Pulse Resp BP Pulse Ox 98.6 F 73 18 130/60 H 100 12/20/18 07:35 12/20/18 07:35 12/20/18 07:35 12/20/18 07:35 12/20/18 07:35 Intake & Output 12/19/18 12/20/18 12/21/18 06:59 06:59 06:59 Intake Total 3150 Output Total 800 Balance 2350 Weight 116.6 kg General appearance: PRESENT: no acute distress, cooperative Respiratory exam: PRESENT: clear to auscultation victorino Cardiovascular exam: PRESENT: RRR, +S1, +S2 GI/Abdominal exam: PRESENT: soft - NOn-tender on palpation. NO CVA tenderness Neurological exam: PRESENT: alert Result Laboratory Results: 12/20/18 07:36 12/20/18 07:36 WBC 14.6 H RBC 4.23 Hgb 9.8 L Hct 30.6 L MCV 72 L MCH 23.1 L MCHC 31.9 L RDW 16.7 H Plt Count 223 Seg Neutrophils % 82.0 H Impressions: Stress Test 12/19/18 00:00 IMPRESSION: Total biophysical profile score 8 of 8 copyright 2011 [employer]- All Rights Reserved Renal Ultrasound 12/20/18 00:00 IMPRESSION: Very mild dilatation of the right renal pelvis, within normal limits given the patient's gestational status of 36 weeks. No left-sided collecting system dilatation No ultrasound evidence of intrarenal kidney stones Assessment & Plan - Diagnosis (1) Pyelonephritis affecting in third trimester Is this a current diagnosis for this admission?: Yes Plan: VSS, afebrile this am Urine culture from office culture ecoli. Blood cultures pending Continue rocephin IV NO CVA tenderness today FHT daily. BPP yesterday 10/09 Renal US negative abscess Encouraged hydration and ambulation Continue current care. Will await Blood cultures - Time Time Spent with patient: Less than 15 minutes Anticipated discharge: Home - HOme within 24-48 hours if Blood cultures negative Within: within 24 hours
[2018-12-20] MEDS ORDERED: INFLUENZA QUAD (6MOS+) 2019-20 VAC 0.5 ML SYR IM ONE (10:00)
[2018-12-21] MEDS: ACETAMINOPHEN 325 MG TABLET PO PRN (07:33)
[2018-12-21 08:07] LABS: ABSOLUTE BASOPHILS # (AUTO) 0.1 10^3/uL (0.0-0.2); ABSOLUTE EOSINOPHILS # (AUTO) 0.1 10^3/uL (0.0-0.6); ABSOLUTE MONOCYTES (AUTO) 0.7 10^3/uL (0.1-1.4); ABSOLUTE NEUT (AUTO) 9.1 10^3/uL (1.7-8.2); BASOPHILS % (AUTO) 0.6 % (0-2); EOSINOPHILS % (AUTO) 0.7 % (0-6); HEMATOCRIT 31.6 % (36.0-47.0); HEMOGLOBIN 10.1 g/dL (12.0-15.5); LYMPHOCYTES % (AUTO) 16.5 % (13-45); MEAN CORPUSCULAR HEMOGLOBIN 23.1 pg (27.0-33.4); MEAN CORPUSCULAR HGB CONC 31.9 g/dL (32.0-36.0); MEAN CORPUSCULAR VOLUME 73 fl (80-97); MONOCYTES % (AUTO) 5.5 % (3-13); PLATELET COUNT 249 10^3/uL (150-450); RED BLOOD COUNT 4.35 10^6/uL (3.72-5.28); RED CELL DISTRIBUTION WIDTH 16.8 % (11.5-14.0); SEGMENTED NEUTROPHILS % (AUTO) 76.7 % (42-78); TOTAL CELLS COUNTED % (AUTO) 100 %; WHITE BLOOD COUNT 11.9 10^3/uL (4.0-10.5)
--- NOTE | 2018-12-21 09:47 | PDOC PROGRESS REPORT ---
Subjective Progress Note for:: 12/21/18 Subjective:: She feels fine today. Reason For Visit: LABOR CHECK/CHILLS NAUSEA,BACK PAIN Pyelonephritis Physical Exam - Physical Exam Vital Signs: Temp Pulse Resp BP Pulse Ox 98.2 F 87 18 108/68 100 12/21/18 08:46 12/21/18 08:46 12/21/18 08:46 12/21/18 08:46 12/21/18 08:46 Intake & Output 12/20/18 12/21/18 12/22/18 06:59 06:59 06:59 Intake Total 3150 1000 Output Total 1800 Balance 1350 1000 General appearance: PRESENT: no acute distress, well-developed, well-nourished GI/Abdominal exam: PRESENT: other - gravid Result Laboratory Results: 12/21/18 07:08 12/21/18 07:08 WBC 11.9 H RBC 4.35 Hgb 10.1 L Hct 31.6 L MCV 73 L MCH 23.1 L MCHC 31.9 L RDW 16.8 H Plt Count 249 Seg Neutrophils % 76.7 Impressions: Stress Test 12/19/18 00:00 IMPRESSION: Total biophysical profile score 8 of 8 copyright 2011 [employer]- All Rights Reserved Renal Ultrasound 12/20/18 00:00 IMPRESSION: Very mild dilatation of the right renal pelvis, within normal limits given the patient's gestational status of 36 weeks. No left-sided collecting system dilatation No ultrasound evidence of intrarenal kidney stones Assessment & Plan - Diagnosis (1) Pyelonephritis affecting in third trimester Is this a current diagnosis for this admission?: Yes - Time Time Spent with patient: 15-24 minutes - Plan Summary Plan Summary: She had a fever again last night but is improving. Will discharge when she makes it through the night without spiking a fever.
[2018-12-21] MEDS: CEFTRIAXONE 1 GM/D5W RTU 1 GM/50 ML RTUPB IV SCH (09:52)
[2018-12-21] MEDS: PRENATAL VITAMIN W DHA CAPSULE PO SCH (09:53)
[2018-12-21] MEDS: ONDANSETRON HCL INJ/PF 4 MG/2 ML SDV IV PRN (23:30)
[2018-12-22] MEDS: CEFTRIAXONE 1 GM/D5W RTU 1 GM/50 ML RTUPB IV SCH ×2 (09:42→22:36)
[2018-12-22] MEDS: PRENATAL VITAMIN W DHA CAPSULE PO SCH (09:42)
[2018-12-22 13:59] LABS: ABSOLUTE EOSINOPHILS # (AUTO) 0.1 10^3/uL (0.0-0.6); ABSOLUTE LYMPHOCYTES (AUTO) 1.9 10^3/uL (0.5-4.7); ABSOLUTE MONOCYTES (AUTO) 0.3 10^3/uL (0.1-1.4); ABSOLUTE NEUT (AUTO) 4.1 10^3/uL (1.7-8.2); BASOPHILS % (AUTO) 0.6 % (0-2); EOSINOPHILS % (AUTO) 1.5 % (0-6); HEMATOCRIT 32.8 % (36.0-47.0); HEMOGLOBIN 10.5 g/dL (12.0-15.5); LYMPHOCYTES % (AUTO) 29.3 % (13-45); MEAN CORPUSCULAR HEMOGLOBIN 23.1 pg (27.0-33.4); MEAN CORPUSCULAR HGB CONC 32.1 g/dL (32.0-36.0); MEAN CORPUSCULAR VOLUME 72 fl (80-97); MONOCYTES % (AUTO) 5.2 % (3-13); PLATELET COUNT 283 10^3/uL (150-450); RED BLOOD COUNT 4.57 10^6/uL (3.72-5.28); RED CELL DISTRIBUTION WIDTH 16.5 % (11.5-14.0); SEGMENTED NEUTROPHILS % (AUTO) 63.4 % (42-78); TOTAL CELLS COUNTED % (AUTO) 100 %; WHITE BLOOD COUNT 6.5 10^3/uL (4.0-10.5)
--- NOTE | 2018-12-22 17:44 | PDOC PROGRESS REPORT ---
Subjective Progress Note for:: 12/22/18 Subjective:: pain improved. nausea improved. No fever last night Reason For Visit: LABOR CHECK/CHILLS NAUSEA,BACK PAIN Physical Exam - Physical Exam Vital Signs: Temp Pulse Resp BP Pulse Ox 98.1 F 80 16 111/64 97 12/22/18 15:23 12/22/18 15:23 12/22/18 15:23 12/22/18 15:23 12/22/18 15:23 Intake & Output 12/21/18 12/22/18 12/23/18 06:59 06:59 06:59 Intake Total 1050 780 Balance 1050 780 General appearance: PRESENT: no acute distress, well-developed, well-nourished Head exam: PRESENT: atraumatic, normocephalic Cardiovascular exam: PRESENT: RRR. ABSENT: diastolic murmur, rubs, systolic murmur Pulses: PRESENT: normal dorsalis pedis pul, +2 pedal pulses bilateral GI/Abdominal exam: PRESENT: normal bowel sounds, soft. ABSENT: distended, guarding, mass, organolmegaly, rebound, tenderness Rectal exam: PRESENT: deferred Extremities exam: PRESENT: full ROM. ABSENT: calf tenderness, clubbing, pedal edema Neurological exam: PRESENT: alert, awake, oriented to person, oriented to place, oriented to time, oriented to situation, CN II-XII grossly intact. ABSENT: motor sensory deficit Psychiatric exam: PRESENT: appropriate affect, normal mood. ABSENT: homicidal ideation, suicidal ideation Skin exam: PRESENT: dry, intact, warm. ABSENT: cyanosis, rash Result Laboratory Results: 12/22/18 13:51 12/22/18 13:51 WBC 6.5 RBC 4.57 Hgb 10.5 L Hct 32.8 L MCV 72 L MCH 23.1 L MCHC 32.1 RDW 16.5 H Plt Count 283 Seg Neutrophils % 63.4 Impressions: Stress Test 12/19/18 00:00 IMPRESSION: Total biophysical profile score 8 of 8 copyright 2011 [employer]- All Rights Reserved Renal Ultrasound 12/20/18 00:00 IMPRESSION: Very mild dilatation of the right renal pelvis, within normal limits given the patient's gestational status of 36 weeks. No left-sided collecting system dilatation No ultrasound evidence of intrarenal kidney stones Status: Imported from PACS Assessment & Plan - Diagnosis (1) Pyelonephritis affecting in third trimester Is this a current diagnosis for this admission?: Yes Plan: pt with last fever 102.9 on 12/20 after 1999. Reviewed with patient that she needs to be 48 hours afebrile then would recommend 10 days of treatment abx and then prophy QHS. - Time Time Spent with patient: Less than 15 minutes Medications reviewed and adjusted accordingly: Yes Anticipated discharge: Home Within: within 24 hours - Inpatient Certification Based on my medical assessment, after consideration of the patient's comorbidities, presenting symptoms, or acuity I expect that the services needed warrant INPATIENT care.: Yes I certify that my determination is in accordance with my understanding of Medicare's requirements for reasonable and necessary INPATIENT services [42 CFR 412.3e].: Yes Medical Necessity: Need Close Monitoring Due to Risk of Patient Decompensation, Need for IV Antibiotics
[2018-12-23] MEDS ORDERED: INFLUENZA QUAD (6MOS+) 2019-20 VAC 0.5 ML SYR IM ONE (08:00)
[2018-12-23 08:03] VITALS: BP 104/51
--- NOTE | 2018-12-23 08:13 | PDOC PROGRESS REPORT ---
Subjective Progress Note for:: 12/23/18 Subjective:: pain improved. nausea improved. No fever last night Reason For Visit: LABOR CHECK/CHILLS NAUSEA,BACK PAIN Physical Exam - Physical Exam Vital Signs: Temp Pulse Resp BP Pulse Ox 97.3 F 93 18 111/55 L 97 12/23/18 04:00 12/23/18 04:00 12/23/18 04:00 12/23/18 04:00 12/23/18 04:00 Intake & Output 12/22/18 12/23/18 12/24/18 06:59 06:59 06:59 Intake Total 780 800 Balance 780 800 General appearance: PRESENT: no acute distress, well-developed, well-nourished Head exam: PRESENT: atraumatic, normocephalic Respiratory exam: PRESENT: clear to auscultation victorino, symmetrical, unlabored Cardiovascular exam: PRESENT: RRR. ABSENT: diastolic murmur, rubs, systolic murmur Pulses: PRESENT: normal dorsalis pedis pul, +2 pedal pulses bilateral Rectal exam: PRESENT: deferred Musculoskeletal exam: PRESENT: ambulatory Neurological exam: PRESENT: alert, awake, oriented to person, oriented to place, oriented to time, oriented to situation, CN II-XII grossly intact. ABSENT: motor sensory deficit Psychiatric exam: PRESENT: appropriate affect, normal mood. ABSENT: homicidal ideation, suicidal ideation Skin exam: PRESENT: dry, intact, warm. ABSENT: cyanosis, rash Result Laboratory Results: 12/22/18 13:51 12/22/18 13:51 WBC 6.5 RBC 4.57 Hgb 10.5 L Hct 32.8 L MCV 72 L MCH 23.1 L MCHC 32.1 RDW 16.5 H Plt Count 283 Seg Neutrophils % 63.4 Impressions: Stress Test 12/19/18 00:00 IMPRESSION: Total biophysical profile score 8 of 8 copyright 2011 [employer]- All Rights Reserved Renal Ultrasound 12/20/18 00:00 IMPRESSION: Very mild dilatation of the right renal pelvis, within normal limits given the patient's gestational status of 36 weeks. No left-sided collecting system dilatation No ultrasound evidence of intrarenal kidney stones Status: Imported from PACS Assessment & Plan - Diagnosis (1) Pyelonephritis affecting in third trimester Is this a current diagnosis for this admission?: Yes Plan: pt with last fever 102.9 on 12/20 after 1999. Reviewed with patient that she needs to be 48 hours afebrile then would recommend 10 days of treatment abx and then prophy QHS. 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
--- NOTE | 2018-12-23 08:56 | PDOC DISCHARGE SUMMARY ---
Impression - Admit/DC Date/PCP Admission Date/Primary Care Provider: 12/19/18 01:37 RAMON ERIC MD Discharge Date: 12/23/18 - Discharge Diagnosis (1) Pyelonephritis affecting in third trimester Is this a current diagnosis for this admission?: Yes - Assessment Summary: admitted for pyelo and started on ABx.. febrile to 103 twice on Saturday. Now afebrile for 48 hours. now 37wks. - Additional Information Resuscitation Status: Full Code Discharge Diet: As Tolerated Discharge Activity: Activity As Tolerated, Balance Activity w/Rest Referrals: RAMON ERIC MD [Primary Care Provider] - Prescriptions: Acetaminophen [Tylenol 325 mg Tablet] 650 mg PO Q4HP PRN #30 PRN Reason: Pnv No.95/Ferrous Fum/Folic AC [ Caplet] 1 tab PO DAILY #60 Home Medications: Acetaminophen [Tylenol 325 mg Tablet] 650 mg PO Q4HP PRN #30 12/23/18 Pnv No.95/Ferrous Fum/Folic AC [ Caplet] 1 tab PO DAILY #60 12/23/18 History of Present Illiness History of Present Illness: OUSMANE CURRAN is a 28 year old female admitted for pyelo and started on ABx.. febrile to 103 twice on Saturday. Now afebrile for 48 hours. now 37wks. Hospital Course Hospital Course: admitted for pyelo and started on ABx.. febrile to 103 twice on Saturday. Now afebrile for 48 hours. now 37wks. Physical Exam - Physical Exam Vital Signs: Temp Pulse Resp BP Pulse Ox 97.4 F 95 16 104/51 L 99 12/23/18 08:03 12/23/18 08:03 12/23/18 08:03 12/23/18 08:03 12/23/18 08:03 Intake & Output 12/22/18 12/23/18 12/24/18 06:59 06:59 06:59 Intake Total 780 800 Balance 780 800 General appearance: PRESENT: no acute distress, well-developed, well-nourished Head exam: PRESENT: atraumatic, normocephalic Respiratory exam: PRESENT: clear to auscultation victorino Cardiovascular exam: PRESENT: RRR. ABSENT: diastolic murmur, rubs, systolic murmur GI/Abdominal exam: PRESENT: normal bowel sounds, soft. ABSENT: distended, guarding, mass, organolmegaly, rebound, tenderness Rectal exam: PRESENT: deferred Extremities exam: PRESENT: full ROM. ABSENT: calf tenderness, clubbing, pedal edema Neurological exam: PRESENT: alert, awake, oriented to person, oriented to place, oriented to time, oriented to situation, CN II-XII grossly intact. ABSENT: motor sensory deficit Psychiatric exam: PRESENT: appropriate affect, normal mood. ABSENT: homicidal ideation, suicidal ideation Skin exam: PRESENT: dry, intact, warm. ABSENT: cyanosis, rash Results Laboratory Results: WBC 6.5 10^3/uL (4.0-10.5) 12/22/18 13:51 RBC 4.57 10^6/uL (3.72-5.28) 12/22/18 13:51 Hgb 10.5 g/dL (12.0-15.5) L 12/22/18 13:51 Hct 32.8 % (36.0-47.0) L 12/22/18 13:51 MCV 72 fl (80-97) L 12/22/18 13:51 MCH 23.1 pg (27.0-33.4) L 12/22/18 13:51 MCHC 32.1 g/dL (32.0-36.0) 12/22/18 13:51 RDW 16.5 % (11.5-14.0) H 12/22/18 13:51 Plt Count 283 10^3/uL (150-450) 12/22/18 13:51 Lymph % (Auto) 29.3 % (13-45) 12/22/18 13:51 [place] % (Auto) 5.2 % (3-13) 12/22/18 13:51 Eos % (Auto) 1.5 % (0-6) 12/22/18 13:51 Baso % (Auto) 0.6 % (0-2) 12/22/18 13:51 Absolute Neuts (auto) 4.1 10^3/uL (1.7-8.2) 12/22/18 13:51 Absolute Lymphs (auto) 1.9 10^3/uL (0.5-4.7) 12/22/18 13:51 Absolute Monos (auto) 0.3 10^3/uL (0.1-1.4) 12/22/18 13:51 Absolute Eos (auto) 0.1 10^3/uL (0.0-0.6) 12/22/18 13:51 Absolute Basos (auto) 0.0 10^3/uL (0.0-0.2) 12/22/18 13:51 Seg Neutrophils % 63.4 % (42-78) 12/22/18 13:51 Urine Color YELLOW 12/18/18 22:00 Urine Appearance SLIGHTLY-CLOUDY 12/18/18 22:00 Urine pH 6.0 (5.0-9.0) 12/18/18 22:00 Ur Specific [place] 1.010 12/18/18 22:00 Urine Protein NEGATIVE mg/dL (NEGATIVE) 12/18/18 22:00 Urine Glucose (UA) NEGATIVE mg/dL (NEGATIVE) 12/18/18 22:00 Urine Ketones NEGATIVE mg/dL (NEGATIVE) 12/18/18 22:00 Urine Blood SMALL (NEGATIVE) H 12/18/18 22:00 Urine Nitrite NEGATIVE (NEGATIVE) 12/18/18 22:00 Urine Bilirubin NEGATIVE (NEGATIVE) 12/18/18 22:00 Urine Urobilinogen NEGATIVE mg/dL (<2.0) 12/18/18 22:00 Ur Leukocyte Esterase MODERATE (NEGATIVE) H 12/18/18 22:00 Urine WBC (Auto) 44 /HPF 12/18/18 22:00 Urine RBC (Auto) 3 /HPF 12/18/18 22:00 Urine Bacteria (Auto) TRACE /HPF 12/18/18 22:00 Squamous Epi Cells Auto 4 /HPF 12/18/18 22:00 Urine Mucus (Auto) OCC /LPF 12/18/18 22:00 Urine Ascorbic Acid NEGATIVE (NEGATIVE) 12/18/18 22:00 Urine Opiates Screen NEGATIVE 12/18/18 22:00 Urine Methadone Screen NEGATIVE 12/18/18 22:00 Ur Barbiturates Screen NEGATIVE 12/18/18 22:00 Ur Phencyclidine Scrn NEGATIVE 12/18/18 22:00 Ur Amphetamines Screen NEGATIVE 12/18/18 22:00 U Benzodiazepines Scrn NEGATIVE 12/18/18 22:00 Urine Cocaine Screen NEGATIVE 12/18/18 22:00 U Marijuana (THC) Screen NEGATIVE 12/18/18 22:00 Impressions: Stress Test 12/19/18 00:00 IMPRESSION: Total biophysical profile score 8 of 8 copyright 2011 [employer]- All Rights Reserved Renal Ultrasound 12/20/18 00:00 IMPRESSION: Very mild dilatation of the right renal pelvis, within normal limits given the patient's gestational status of 36 weeks. No left-sided collecting system dilatation No ultrasound evidence of intrarenal kidney stones Plan Health Concerns: Pyelonephritis in . on abx since admission. Plan of Treatment: Discharge home on po abx to complete course then QHS abx Time Spent: Less than 30 Minutes Stroke Is this a Stroke Patient?: No Acute Heart Failure - Is this a Heart Failure Patient?: No
[2018-12-23] MEDS: CEFTRIAXONE 1 GM/D5W RTU 1 GM/50 ML RTUPB IV SCH (09:06)
[2018-12-23] MEDS: PRENATAL VITAMIN W DHA CAPSULE PO SCH (09:06)
== END 2018-12-23 10:50 | disposition home or self-care (01) | DRG 833 ==
LOC: LC 21:48 → LR 22:01 → UNDOADMOB 12-19 01:37 → OBSVTOIN 12-19 01:37 → LR 12-19 01:37 → INTOOBSV 12-19 01:37 → 2S 12-19 08:00 → LR 12-19 08:00
PROVIDERS: ADMIT Obstetrics & Gynecology Gynecology; ATTEND Obstetrics & Gynecology Gynecology
DX: O23.03 Infections of kidney in pregnancy, third trimester (principal); Z23 Encounter for immunization; Z3A.36 36 weeks gestation of pregnancy
CPT/HCPCS: 36415; 59025; 76775; 76819; 80307; 81001; 85025; 87040; 90686; J0696; J2405; J3490; J7120

== ENCOUNTER 2019-01-06 01:35 | Outpatient (CLI) | payer MEDICAID ==
[2019-01-06 02:32] LABS: APPEARANCE,URINE CLOUDY; BILIRUBIN,URINE NEGATIVE (NEGATIVE); COLOR,URINE YELLOW; GLUCOSE, URINE NEGATIVE (NEGATIVE); KETONES,URINE NEGATIVE (NEGATIVE); LEUKOCYTE ESTERASE,URINE MODERATE (NEGATIVE); NITRITE,URINE NEGATIVE (NEGATIVE); PROTEIN,URINE 30 mg/dL (NEGATIVE); URINE SPECIFIC GRAVITY 1.023
[2019-01-06 02:59] LABS: URINE AMPHETAMINES SCREEN NEGATIVE; URINE BARBITURATES SCREEN NEGATIVE; URINE BENZODIAZEPINES SCREEN NEGATIVE; URINE COCAINE SCREEN NEGATIVE; URINE MARIJUANA (THC) SCREEN NEGATIVE; URINE METHADONE SCREEN NEGATIVE; URINE PHENCYCLIDINE SCREEN NEGATIVE
--- NOTE | 2019-01-06 03:06 | Non Stress Test Report ---
Non Stress Test Datetime Report Generated by CPN: 01/06/2019 03:06 DEMOGRAPHIC EGA NST: 39.0 INDICATION Indication for Study: Ordered by Provider Indication for Study (NST) Other: LC MONITORING Monitor Explained: Monitor Explained; Test Explained; Patient Verbalized Understanding Time on Monitor: 01/06/2019 02:34 Time off Monitor: 01/06/2019 02:59 NST Duration: 25 NST INTERVENTIONS NST Interventions: PO Hydration Physician Notified NST: Dr. Younger BABY A: [id number] BABY A Movement : Present Movement : Present Contraction Frequency : none FHR Baseline : 140 Accelerations : 15X15 Accelerations : 15X15 Decelerations : None Decelerations : None Variability : Moderate 6-25bpm NST Review: Meets Criteria for Reactive NST NST Review: Meets Criteria for Reactive NST NST Review and Verified By : Roberta Arias RN NST Results: Reactive NST Results: Reactive NST REPORT Report Trigger: Send Report
== END 2019-01-06 03:08 | disposition home or self-care (01) ==
LOC: LC 01:35
PROVIDERS: ATTEND Obstetrics & Gynecology
PROC: 4A1HXCZ Monitoring of Products of Conception, Cardiac Rate, External Approach (ICD-10-PCS; principal; 2019-01-06)
DX: Z34.03 Encounter for supervision of normal first pregnancy, third trimester (principal); Z3A.39 39 weeks gestation of pregnancy
CPT/HCPCS: 59025; 80307; 81005

== ENCOUNTER 2019-01-09 19:18 | Inpatient (IN) | payer MEDICAID ==
[2019-01-09 21:08] LABS: APPEARANCE,URINE SLIGHTLY-CLOUDY; BILIRUBIN,URINE NEGATIVE (NEGATIVE); COLOR,URINE YELLOW; GLUCOSE, URINE NEGATIVE (NEGATIVE); KETONES,URINE NEGATIVE (NEGATIVE); LEUKOCYTE ESTERASE,URINE NEGATIVE (NEGATIVE); NITRITE,URINE NEGATIVE (NEGATIVE); PROTEIN,URINE 30 mg/dL (NEGATIVE); URINE SPECIFIC GRAVITY 1.021; UROBILINOGEN,URINE NEGATIVE mg/dL (<2.0)
[2019-01-09] MEDS ORDERED: RINGERS SOLUTION,LACTATED 1,000 ML IV PRN (22:22)
[2019-01-09] MEDS ORDERED: RINGERS SOLUTION,LACTATED 1,000 ML IV ONE (22:22)
[2019-01-09] MEDS ORDERED: OXYTOCIN/NORMAL SALINE 20 UNIT/1,000 ML RTUINJ ONE (22:36)
[2019-01-09] MEDS ORDERED: MISOPROSTOL 0.2 MG TABLET ONE (22:36)
[2019-01-09] MEDS ORDERED: LIDOCAINE 1% INJ-PF (10 MG/ML) 30 ML SDV ONE (22:36)
[2019-01-09 23:03] LABS: ABSOLUTE BASOPHILS # (AUTO) 0.1 10^3/uL (0.0-0.2); ABSOLUTE EOSINOPHILS # (AUTO) 0.1 10^3/uL (0.0-0.6); ABSOLUTE LYMPHOCYTES (AUTO) 1.9 10^3/uL (0.5-4.7); ABSOLUTE MONOCYTES (AUTO) 0.5 10^3/uL (0.1-1.4); ABSOLUTE NEUT (AUTO) 10.9 10^3/uL (1.7-8.2); BASOPHILS % (AUTO) 0.4 % (0-2); EOSINOPHILS % (AUTO) 0.8 % (0-6); HEMATOCRIT 33.7 % (36.0-47.0); HEMOGLOBIN 10.9 g/dL (12.0-15.5); LYMPHOCYTES % (AUTO) 14.3 % (13-45); MEAN CORPUSCULAR HEMOGLOBIN 23.6 pg (27.0-33.4); MEAN CORPUSCULAR HGB CONC 32.5 g/dL (32.0-36.0); MEAN CORPUSCULAR VOLUME 73 fl (80-97); MONOCYTES % (AUTO) 3.8 % (3-13); PLATELET COUNT 286 10^3/uL (150-450); RED BLOOD COUNT 4.63 10^6/uL (3.72-5.28); RED CELL DISTRIBUTION WIDTH 19.2 % (11.5-14.0); SEGMENTED NEUTROPHILS % (AUTO) 80.7 % (42-78); TOTAL CELLS COUNTED % (AUTO) 100 %; WHITE BLOOD COUNT 13.5 10^3/uL (4.0-10.5)
[2019-01-09 23:13] LABS: URINE AMPHETAMINES SCREEN NEGATIVE; URINE BARBITURATES SCREEN NEGATIVE; URINE BENZODIAZEPINES SCREEN NEGATIVE; URINE COCAINE SCREEN NEGATIVE; URINE MARIJUANA (THC) SCREEN NEGATIVE; URINE METHADONE SCREEN NEGATIVE; URINE PHENCYCLIDINE SCREEN NEGATIVE
[2019-01-09] MEDS ORDERED: EPHEDRINE SULFATE INJ 50 MG/1 ML AMPULE ONE (23:53)
[2019-01-09] MEDS ORDERED: BUPIVACAINE HCL 0.25 % INJ/PF (2.5 MG/1 ML) 30 ML VIAL ONE (23:54)
[2019-01-09] MEDS ORDERED: FENTANYL/BUPIVACAINE/NS/PF 300 MCG/150 ML RTUINJ EPI ONE (23:54)
[2019-01-09] MEDS ORDERED: FENTANYL CITRATE INJ/PF 100 MCG/2 ML AMPUL ONE (23:55)
[2019-01-10] MEDS ORDERED: OXYTOCIN/NORMAL SALINE 20 UNIT/1,000 ML RTUINJ IV PRN ×2 (04:51→11:23)
[2019-01-10] MEDS ORDERED: ONDANSETRON HCL INJ/PF 4 MG/2 ML SDV ONE (04:58)
--- NOTE | 2019-01-10 05:03 | Admission Physical ---
Datetime Report Generated by CPN: 01/10/2019 05:02 CURRENT ADMISSION Chief Complaint: Uterine Contractions Chief Complaint Other: Painful contractions. Indication for Induction: Not Applicable Admit Impression : Active Labor Admit Plan: Admit to Unit; Initiate Labor Induction Protocol ALLERGIES Medication Allergies: No Medication Allergies: No Known Allergies (01/09/2019) Latex: No Latex Allergies OBSTETRICAL HISTORY EDC: 01/13/2019 00:00 : 1 Para: 0 Term: 0 : 0 SAB: 0 IAB: 0 Ectopic: 0 Livin Cesareans: 0 VBACs: 0 Multiple Births: 0 Gestational Diabetes: No Rh Sensitization: No Incompetent Cervix: No HAZEL: No Infertility: No ART Treatment: No Uterine Anomaly: No IUGR: No Hx Previous C/S: No Macrosomia: No Hx Loss/Stillborn: No PIH: No Hx : No Placenta Previa/Abruption: No Depression/PP Depression: No PTL/PROM: No Post Hemorrhage: No Current Procedures: Ultrasound; NST Obstetrical History Comments: g1- current SEE RECORDS Alcohol: No Marijuana : No Cocaine: No Other Illicit Drugs: No Cigarettes: Never Smoker. 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 Surgery: No Heart Disease: No Hosp/Surgery: No Autoimmune Disorder: No Anesthetic Complications: No Kidney Disease: Yes Abnormal Pap Smear: No Neuro/Epilepsy: No Psychiatric Disorders: No Other Medical Diseases: No Hepatitis/Liver Disease: No Significant Family History: No Varicosities/Phlebitis: No Trauma/Violence : No Thyroid Dysfunction: No INFECTIOUS HISTORY Gonorrhea: No Genital Herpes: No Chlamydia: No Tuberculosis: No Syphilis: No Hepatitis: No HIV/AIDS Exposure: No Rash or Viral Illness: No HPV: No PHYSICAL EXAM General: Normal HEENT: Normal Neurologic: Normal Thyroid: Normal Heart: Normal Lungs: Normal Breast: Normal Back: Normal Abdomen: Normal Genitourinary Exam: Normal Extremities: Normal DTRs: Normal Pelvic Type: Adequate Vital Signs: Reviewed; Within Normal Limits VAGINAL EXAM Dilatation: 5 Effacement: 80 Station: -2 Contraction Comments: Regularly Q 3-4 minutes MEMBRANES Pooling: Negative Membranes: Intact FETUS A EGA: 39.4 Monitoring: External US FHR- Baseline: 145 Variability: Moderate 6-25bpm Accelerations: 15X15 Decelerations: None FHR Category: Category I Admit Comment: G1 at 39.4 wks EGA in active labor. Admit to LDR NPO and IVFs CEFM and toco GBS negative She wants to try for natural delivery, but does not want to discard possiblity of epidural Anticipate PLANS FOR LABOR AND DELIVERY Labor and Delivery: None Pain Management: Epidural Feeding Preference: Breast Benefit of Breast Feed Discussed: Yes Circumcision: No INFORMED CONSENT Informed Consent Obtained: Vaginal Delivery; Section Delivery; Vacuum/Forceps Assist; Risks, Benefits and Alternatives Discussed Signature: with User ID: [email or web address] : with User ID: [email or web address]
[2019-01-10] MEDS ORDERED: ONDANSETRON HCL INJ/PF 4 MG/2 ML SDV IV ONE (05:04)
[2019-01-10] MEDS ORDERED: DIPH/PERTUSS(ACELL)/TETANUS VAC/PF 0.5 ML SYR (>=10YO) IM PRN (11:23)
[2019-01-10] MEDS ORDERED: BENZOCAINE/MENTHOL AEROSOL SPRAY 56 ML TOP PRN (11:23)
[2019-01-10] MEDS ORDERED: ACETAMINOPHEN WITH CODEINE #3 TABLET PO PRN ×2 (11:23)
[2019-01-10] MEDS ORDERED: MEASLES,MUMPS&RUBELLA VACC/PF 0.5 ML VIAL SUBCUT PRN (11:23)
[2019-01-10] MEDS ORDERED: DIBUCAINE 1% OINTMENT 56 GM TP PRN (11:23)
[2019-01-10] MEDS ORDERED: ZOLPIDEM TARTRATE 5 MG TABLET PO PRN (11:23)
--- NOTE | 2019-01-10 13:42 | Delivery Summary ---
Del Sum A-C Datetime Report Generated by CPN: 01/10/2019 13:41 DELIVERY PERSONNEL DELIVERY PERSONNEL: [id number] Delivery Doctor:: Nelida Potter MD Labor and Delivery Nurse:: Genesis Barajas RNpeeler operator Nurse:: Tena Vieyra RN Nursery Nurse:: Manju Schwarz RN Farmer Cash Grain/AGRICULTURE SCIENCE TEACHER: Monique Jorgito, TIE BUYER MATERNAL INFORMATION Delivery Anesthesia: Epidural Medications After Delivery: Pitocin Bolus-Please Comment Meds After Delivery Comment: Pitocin 20 units IV Delivery QBL: 200 Maternal Complications: None LABOR SUMMARY EDC: 01/13/2019 00:00 No. Babies in Womb: 1 Attempted: No Labor Anesthesia: Epidural LABOR INFORMATION Reason for Induction: Not Applicable Onset of Labor: 01/09/2019 17:45 Complete Dilatation: 01/10/2019 11:23 Cervical Ripening Agents: Cytotec @ 1000 micrograms [place] Oxytocin: Augmentation Group B Beta Strep: negative Antibiotics # of Doses: n/a Antibiotics Time of Last Dose: n/a Name of Antibiotic Given: n/a Steroids Given: None Reason Steroids Not Administered: Not Applicable Other Reason Not Administered: n/a MEMBRANES Membranes Rupture Method: Spontaneous Rupture of Membranes: 01/09/2019 21:50 Length of Rupture (hr): 12.85 Amniotic Fluid Color: Heavy Meconium Amniotic Fluid Amount: Small Amniotic Fluid Odor: Normal STAGES OF LABOR Stage 1 hr: 17 Stage 1 min: 38 Stage 2 hr: 0 Stage 2 min: -42 Stage 3 hr: 0 Stage 3 min: 5 Total Time in Labor hr: 17 Total Time in Labor min: 1 VAGINAL DELIVERY Episiotomy: None Laceration #1: Periurethral Laceration Extension #1: Second Degree Laceration Repair: Yes Laceration Repair Note: clitoral leyva repaired with 3-0 chromic interrupted sutures Sponge Count Correct: N/A CSECTION DELIVERY Primary Indication: N/A Secondary Indication: N/A BABY A INFORMATION Delivery Date/Time: 01/10/2019 10:41 Method of Delivery: Vaginal Born in Route : No : N/A Forceps: N/A Vacuum Extraction: N/A Shoulder Dystocia : No PRESENTATION/POSITION BABY A Presentation: Cephalic Cephalic Presentation: Vertex Vertex Position: Right Occipital Anterior. Right Compound Hand Breech Presentation: N/A PLACENTA INFORMATION BABY A Placenta Delivery Time : 01/10/2019 10:46 Placenta Method of Delivery: Spontaneous Placenta Status: Delivered SCORES BABY A Heart Rate 1 min: >100 bpm Resp Effort 1 min: Good Cry Reflex Irritability 1 min: Cough or Sneeze or Pulls Away Muscle Tone 1 min: Active Motion Color 1 min: Body [place], Extremities Blue Resuscitation Effort 1 min: Tactile Stimulation SCORE 1 MIN: 9 Heart Rate 5 min: >100 bpm Resp Effort 5 min: Good Cry Reflex Irritability 5 min: Cough or Sneeze or Pulls Away Muscle Tone 5 min: Active Motion Color 5 min: Body [place]ell, Extremities Blue Resuscitation Effort 5 min: N/A SCORE 5 MIN: 9 INFANT INFORMATION BABY A Gestational Age at Delivery: 39.4 Gestational Status: Full Term- 39- 40.6 Weeks Infant Outcome : Liveborn Condition : Stable Sex: Male IDENTIFICATION BABY A Verification Date/Time: 01/10/2019 11:07 ID Band Number: [id number] Mother's Name Verified: Yes Infant RN Verifying : Lacey Vieyra MAYDA Additional Verifying Personnel: Celina Barajas RN WEIGHT/LENGTH BABY A Birthweight (gm): 3701 Infant Weight (lb): 8 Infant Weight (oz): 3 Length (in): 21.00 Length (cm): 53.34 CORD INFORMATION BABY A No. Cord Vessels: 3 Nuchal Cord : N/A Cord Blood Taken: Yes-For Eval (Mom's Blood Type - or O+) Infant Suction: Mouth ASSESSMENT BABY A Skin to Skin: Yes BABY B INFORMATION : N/A SIGNATURES Signature: with User ID: [email or web address]
[2019-01-10] MEDS: IBUPROFEN 800 MG TABLET PO SCH ×2 (15:21→21:30)
[2019-01-10] MEDS: DOCUSATE SODIUM 100 MG CAPSULE PO SCH (18:04)
[2019-01-10] MEDS: FERROUS SULFATE 325 MG TABLET PO SCH (18:04)
[2019-01-11] MEDS: IBUPROFEN 800 MG TABLET PO SCH ×3 (06:03→22:55)
[2019-01-11 06:22] LABS: HEMATOCRIT 25.2 % (36.0-47.0); MEAN CORPUSCULAR HEMOGLOBIN 23.7 pg (27.0-33.4); MEAN CORPUSCULAR HGB CONC 32.2 g/dL (32.0-36.0); MEAN CORPUSCULAR VOLUME 74 fl (80-97); PLATELET COUNT 233 10^3/uL (150-450); RED BLOOD COUNT 3.42 10^6/uL (3.72-5.28); RED CELL DISTRIBUTION WIDTH 18.9 % (11.5-14.0); WHITE BLOOD COUNT 14.7 10^3/uL (4.0-10.5)
[2019-01-11 06:33] LABS: HEMOGLOBIN 8.1 g/dL (12.0-15.5)
--- NOTE | 2019-01-11 11:08 | PDOC PROGRESS REPORT ---
Subjective-OB Progress Note for:: 01/11/19 - PP Day #1, doing well, no complaints, O+, Rubella non-immune, Physical Exam (OB) Vital Signs: Temp Pulse Resp BP Pulse Ox 97.5 F 80 17 115/63 100 01/11/19 07:25 01/11/19 07:25 01/11/19 07:25 01/11/19 07:25 01/11/19 07:25 Intake & Output 01/10/19 01/11/19 01/12/19 06:59 06:59 06:59 Intake Total 1100 240 Balance 1100 240 Weight 115.3 kg - General General Appearance: Appears well, Alert In distress: None - Lochia Lochia Amount: Scant < 10 ml Lochia Color: Rubra/Red - Abdomen Description: Soft Hernia Present: No Fundal Description: Firm, Midline Fundal Height: u/3 - u/4 - Respiratory Respiratory Status: No respiratory distress - Abdominal Inspection: Normal Distension: No distension Tenderness: Nontender - Genitourinary Genitourinary Note: voiding - Extremities Upper extremity: Normal inspection Lower extremities: Normal inspection - Neurological Cognition: Normal Orientation: AAOx4 - Psychological Associated symptoms: Normal affect, Normal mood - Skin Skin Temperature: Warm Skin Moisture: Dry Objective-Diagnostic Laboratory: 01/11/19 05:28 01/11/19 05:28 WBC 14.7 H RBC 3.42 L Hgb 8.1 L D Hct 25.2 L MCV 74 L MCH 23.7 L MCHC 32.2 RDW 18.9 H Plt Count 233 Assessment and Plan(PN) - Assessment and Plan (1) Acute blood loss anemia Is this a current diagnosis for this admission?: Yes - Time Spent with Patient Time with patient: Less than 15 minutes Medications reviewed and adjusted accordingly: Yes - Disposition Anticipated Discharge: Home Within: within 24 hours
[2019-01-11] MEDS: PRENATAL VITAMIN W DHA CAPSULE PO SCH (11:15)
[2019-01-11] MEDS: SENNOSIDES/DOCUSATE 8.6-50 MG 1 EACH TABLET PO SCH (11:15)
[2019-01-11] MEDS: FERROUS SULFATE 325 MG TABLET PO SCH ×2 (11:15→18:11)
[2019-01-11] MEDS: DOCUSATE SODIUM 100 MG CAPSULE PO SCH ×2 (11:16→18:11)
[2019-01-12] MEDS: IBUPROFEN 800 MG TABLET PO SCH ×2 (07:06→13:36)
[2019-01-12 08:48] VITALS: BP 120/73
[2019-01-12] MEDS: DOCUSATE SODIUM 100 MG CAPSULE PO SCH (09:19)
[2019-01-12] MEDS: PRENATAL VITAMIN W DHA CAPSULE PO SCH (09:19)
[2019-01-12] MEDS: FERROUS SULFATE 325 MG TABLET PO SCH (09:19)
[2019-01-12] MEDS: SENNOSIDES/DOCUSATE 8.6-50 MG 1 EACH TABLET PO SCH (09:19)
--- NOTE | 2019-01-12 12:53 | PDOC DISCHARGE SUMMARY ---
Impression - Admit/DC Date/PCP Admission Date/Primary Care Provider: 01/09/19 22:24 ALFONZO MAY MD Discharge Date: 01/12/19 - Discharge Diagnosis (1) Acute blood loss anemia Is this a current diagnosis for this admission?: Yes (2) (normal spontaneous vaginal delivery) Is this a current diagnosis for this admission?: Yes (3) Pyelonephritis affecting in third trimester Is this a current diagnosis for this admission?: No - Additional Information Discharge Diet: Regular Discharge Activity: Balance Activity w/Rest, Pelvic Rest Referrals: ALFONZO AMY MD [Primary Care Provider] - Prescriptions: Ferrous Sulfate [Feosol 325 mg Tablet] 325 mg PO BID #60 tablet Ibuprofen [Motrin 800 mg Tablet] 800 mg PO Q8HP PRN #60 tablet PRN Reason: Home Medications: Pnv No.95/Ferrous Fum/Folic AC [ Caplet] 1 tab PO DAILY #60 12/23/18 Ferrous Sulfate [Feosol 325 mg Tablet] 325 mg PO BID #60 tablet 01/12/19 Ibuprofen [Motrin 800 mg Tablet] 800 mg PO Q8HP PRN #60 tablet 01/12/19 HPI Gestational Age: 39+4 Reason(s) for Admission: Onset of Labor Procedures: NST Intrapartum Procedure(s): Spontaneous Vaginal Delivery Complication(s): Laceration-Periurethral Results Laboratory Results: WBC 14.7 10^3/uL (4.0-10.5) H 01/11/19 05:28 RBC 3.42 10^6/uL (3.72-5.28) L 01/11/19 05:28 Hgb 8.1 g/dL (12.0-15.5) L D 01/11/19 05:28 Hct 25.2 % (36.0-47.0) L 01/11/19 05:28 MCV 74 fl (80-97) L 01/11/19 05:28 MCH 23.7 pg (27.0-33.4) L 01/11/19 05:28 MCHC 32.2 g/dL (32.0-36.0) 01/11/19 05:28 RDW 18.9 % (11.5-14.0) H 01/11/19 05:28 Plt Count 233 10^3/uL (150-450) 01/11/19 05:28 Lymph % (Auto) 14.3 % (13-45) 01/09/19 22:54 [place] % (Auto) 3.8 % (3-13) 01/09/19 22:54 Eos % (Auto) 0.8 % (0-6) 01/09/19 22:54 Baso % (Auto) 0.4 % (0-2) 01/09/19 22:54 Absolute Neuts (auto) 10.9 10^3/uL (1.7-8.2) H 01/09/19 22:54 Absolute Lymphs (auto) 1.9 10^3/uL (0.5-4.7) 01/09/19 22:54 Absolute Monos (auto) 0.5 10^3/uL (0.1-1.4) 01/09/19 22:54 Absolute Eos (auto) 0.1 10^3/uL (0.0-0.6) 01/09/19 22:54 Absolute Basos (auto) 0.1 10^3/uL (0.0-0.2) 01/09/19 22:54 Seg Neutrophils % 80.7 % (42-78) H 01/09/19 22:54 Urine Color YELLOW 01/09/19 20:00 Urine Appearance SLIGHTLY-CLOUDY 01/09/19 20:00 Urine pH 6.0 (5.0-9.0) 01/09/19 20:00 Ur Specific [place] 1.021 01/09/19 20:00 Urine Protein 30 mg/dL (NEGATIVE) H 01/09/19 20:00 Urine Glucose (UA) NEGATIVE mg/dL (NEGATIVE) 01/09/19 20:00 Urine Ketones NEGATIVE mg/dL (NEGATIVE) 01/09/19 20:00 Urine Blood SMALL (NEGATIVE) H 01/09/19 20:00 Urine Nitrite NEGATIVE (NEGATIVE) 01/09/19 20:00 Urine Bilirubin NEGATIVE (NEGATIVE) 01/09/19 20:00 Urine Urobilinogen NEGATIVE mg/dL (<2.0) 01/09/19 20:00 Ur Leukocyte Esterase NEGATIVE (NEGATIVE) 01/09/19 20:00 Urine Ascorbic Acid NEGATIVE (NEGATIVE) 01/09/19 20:00 Urine Opiates Screen NEGATIVE 01/09/19 20:00 Urine Methadone Screen NEGATIVE 01/09/19 20:00 Ur Barbiturates Screen NEGATIVE 01/09/19 20:00 Ur Phencyclidine Scrn NEGATIVE 01/09/19 20:00 Ur Amphetamines Screen NEGATIVE 01/09/19 20:00 U Benzodiazepines Scrn NEGATIVE 01/09/19 20:00 Urine Cocaine Screen NEGATIVE 01/09/19 20:00 U Marijuana (THC) Screen NEGATIVE 01/09/19 20:00 RPR NONREACTIVE (NONREACTIVE) 01/09/19 22:54 Blood Type O POSITIVE 01/09/19 22:54 Antibody Screen NEGATIVE 01/09/19 22:54 Plan Plan of Treatment: f/u in 4 weeks at [facility] for PP exam
== END 2019-01-12 13:50 | disposition home or self-care (01) | DRG 806 ==
LOC: LC 19:18 → LR 22:24 → 2S 01-10 14:25
PROVIDERS: ADMIT Obstetrics & Gynecology; ATTEND Obstetrics & Gynecology
PROC: 10E0XZZ Delivery of Products of Conception, External Approach (ICD-10-PCS; principal; 2019-01-09)
PROC: 0UQMXZZ Repair Vulva, External Approach (ICD-10-PCS; 2019-01-09)
DX: O75.3 Other infection during labor (principal); N12 Tubulo-interstitial nephritis, not specified as acute or chronic; Z37.0 Single live birth; D62 Acute posthemorrhagic anemia; O90.81 Anemia of the puerperium; O71.82 Other specified trauma to perineum and vulva; O77.0 Labor and delivery complicated by meconium in amniotic fluid; Z3A.39 39 weeks gestation of pregnancy
CPT/HCPCS: 36415; 80307; 81005; 85025; 85027; 86592; 86850; 86900; 86901; 90707; J2405; J2590; J3010; J3490